=== PATIENT | male | born 1930 | race Caucasian/White ===

== ENCOUNTER 2017-05-20 15:50 | Inpatient (IN) | payer OTHER ==
--- NOTE | 2017-05-20 16:05 | CPEKG ---
Heart Rate: 79 RR Interval: 759 P-R Interval: 208 QRSD Interval: 84 QT Interval: 376 QTC Interval: 432 P Whitehall: 74 QRS Whitehall: 31 T Wave Whitehall: 56 EKG Severity - NORMAL ECG - EKG Impression: SINUS RHYTHM Electronically Signed By: Reggie Whelan 20-May-2017 18:01:36
[2017-05-20 16:24] LABS: % IMMATURE GRANULYOCYTES 0.5 % (0.0-1.1); ABSOLUTE IMMATURE GRANULOCYTES 0.03 10^3/uL (0.00-0.10); ADD DIFF? NO; ADD MORPH? NO; ADD SCAN? NO; ATYPICAL LYMPHOCYTE FLAG 10 (0-99); FRAGMENT RBC FLAG 0 (0-99); HEMATOCRIT 36.6 % (40.0-51.0); HEMOGLOBIN 11.2 g/dL (13.7-17.5); LEFT SHIFT FLG 10 (0-99); LIPEMIA HEMOLYSIS FLAG 80 (0-99); MEAN CELL HEMOGLOBIN 22.4 pg (27.9-34.1); MEAN CELL HEMOGLOBIN CONCENTR. 30.6 g/dL (32.4-36.7); MEAN CELL VOLUME 73.2 fL (81.5-99.8); MEAN PLATELET VOLUME 10.2 fL (8.7-11.7); PLATELET CLUMPS FLAG 20 (0-99); PLATELET COUNT 149 10^3/uL (150-400); RED CELL DISTRIBUTION WIDTH 17.2 % (11.5-15.2)
[2017-05-20 16:36] LABS: ALANINE AMINOTRANSFERASE 30 IU/L (21-72); ALBUMIN 4.2 g/dL (3.5-5.0); ALKALINE PHOSPHATASE 133 IU/L (38-126); ANION GAP 12 mEq/L (8-16); ASPARTATE AMINOTRANSFERASE 39 IU/L (17-59); BILIRUBIN,TOTAL 1.7 mg/dL (0.1-1.4); BILIRUBIN-CONJUGATED 0.4 mg/dL (0.0-0.5); BILIRUBIN-UNCONJUGATED 1.3 mg/dL (0.0-1.1); CARBON DIOXIDE 22 mEq/l (22-31); CHLORIDE 107 mEq/L (97-110); CREATININE 1.2 mg/dL (0.7-1.3); GLOMERULAR FILTRATION RATE 58; GLUCOSE 124 mg/dL (70-100); POTASSIUM 5.2 mEq/L (3.5-5.2); SODIUM 141 mEq/L (134-144); TOTAL PROTEIN 8.2 g/dL (6.3-8.2)
[2017-05-20] MEDS ORDERED: IOPAMIDOL (ISOVUE-300) 100 ML BTL ONE (16:43)
[2017-05-20 16:48] LABS: TROPONIN I < 0.012 ng/mL (0-0.034)
[2017-05-20] MEDS ORDERED: ERTAPENEM 1 GM in NS 100 ML IV ONE (17:36)
[2017-05-20] MEDS ORDERED: NS 1,000 ML IV ONE (17:36)
--- NOTE | 2017-05-20 17:36 | EDPHY ---
H & P Stated Complaint: epigastric pain since this am Time Seen by Provider: 05/20/17 16:06 HPI/ROS: CHIEF COMPLAINT: Epigastric pain HISTORY OF PRESENT ILLNESS: The patient presents to the ED with a 1 day history of severe the epigastric pain. The patient has had milder symptoms over the past 4 days alleviated with Tums. The patient reports nausea but no vomiting. He denies diarrhea. He denies fever. The patient has remote history of bowel obstruction requiring laparoscopy. The patient reports his pain is currently a 6/10. The patient denies recent fever, cough or congestion. Patient has no history of exertional chest pain or shortness of breath. The patient does have a remote history of coronary artery disease. The patient is visiting from [place]. He has been in [place] since the 21 of March. REVIEW OF SYSTEMS: A comprehensive 10 point review of systems is otherwise negative aside from elements mentioned in the history of present illness. Source: Patient Exam Limitations: No limitations - Personal History Current Tetanus/Diphtheria Vaccine: Unsure Current Tetanus Diphtheria and Acellular Pertussis (TDAP): Unsure - Medical/Surgical History Hx Asthma: No Hx Chronic Respiratory Disease: Yes Hx Diabetes: No Hx Cardiac Disease: Yes Hx Renal Disease: No Hx Cirrhosis: No Hx Alcoholism: No Hx HIV/AIDS: No Hx Splenectomy or Spleen Trauma: No Other PMH: stent x1 12/2007. copd - Social History Smoking Status: Former smoker - Physical Exam Exam: General Appearance: Alert, mild discomfort secondary to pain Eyes: Pupils equal and round no pallor or injection ENT, Mouth: Mucous membranes moist Respiratory: There are no retractions, lungs are clear to auscultation Cardiovascular: Regular rate and rhythm Gastrointestinal: Moderate epigastric tenderness, no peritoneal signs, normal bowel sounds Neurological: A&O, normal motor function, normal sensory exam, normal cranial nerves Skin: Warm and dry, no rashes Musculoskeletal: Neck is supple nontender Extremities: symmetrical, full range of motion Constitutional: Initial Vital Signs Temperature (C) 36.7 C 05/20/17 15:55 Heart Rate 83 05/20/17 15:55 Respiratory Rate 16 05/20/17 15:55 Blood Pressure 132/74 H 05/20/17 15:55 O2 Sat (%) 94 05/20/17 15:55 O2 Delivery Mode Room Air Allergies/Adverse Reactions: No Known Allergies Allergy (Unverified 05/20/17 15:54) Home Medications: Medication Instructions Recorded Aspirin [Aspirin 81mg (*)] 81 mg PO DAILY 05/20/17 Betaxolol 0.25% [BETOPTIC S 0.25% 1 drops EACHEYE HS 05/20/17 (RX)] Doxycycline Hyclate [Vibramycin 100 mg PO DAILY 05/20/17 100 MG (*)] Loperamide HCl [Imodium 2 mg (*)] 4 mg PO DAILY 05/20/17 Melatonin [Melatonin 3 MG (*)] 3 - 6 mg PO HS PRN 05/20/17 Ranitidine HCl [Zantac] 150 mg PO DAILY 05/20/17 Simvastatin 10 mg PO HS 05/20/17 Tiotropium Inhaler [Spiriva 18 mcg IH DAILY 05/20/17 Handihaler] Medical Decision Making - Diagnostics EKG Interpretation: EKG: Complete interpretation has been separately recorded in the [facility] archive. Summary impression: Sinus rhythm, rate 79. No ischemic changes. Imaging Results: Imaging Impressions Abdomen CT 05/20/17 16:41 Impression: 1. Fluid in the right upper quadrant of the abdomen surrounding the gallbladder , as well as edema in the duodenal bulb and gastric antrum with surrounding free fluid and two gallstones in the right upper quadrant within the mesentery, likely representing perforation from choledocholithiasis either perforated duodenum or perforated common bile duct. Recommend surgeon. 2. Cirrhosis and a small amount of ascites in the right upper quadrant. 3. Atherosclerotic aorta without aneurysm. 4. No drainable abscess. Findings and recommendations discussed with emergency department physician, Reggie Whelan at 1724 hours on May 20, 2017. Final report concurs with initial preliminary interpretation. ED Course/Re-evaluation: The patient had an IV established. He received a L of normal saline. An EKG was performed which demonstrates no evidence of ischemia. Given the patient's abdominal tenderness he was taken for an emergent CT scan of the abdomen pelvis which demonstrates duodenal inflammation as well as extraluminal cholelithiasis. I re-evaluated the patient at 5:30 p.m.. He is receiving an additional 1 L of normal saline. He is receiving IV morphine for pain control. Consultation was made with Dr. Mary Hough who on-call for General surgery this evening. She evaluated the patient in the emergency department and will be taking him emergently to the operating room for exploration. The patient received IV Invanz. He was kept NPO throughout her stay in the emergency department. The patient will be taken emergently to the operating room for evaluation of his presumed abdominal perforation. Differential Diagnosis: Differential diagnosis considered includes acute coronary syndrome, pancreatitis , cholecystitis, duodenitis, perforation, obstruction Critical Care Time: Critical care time exclusive of procedures and exclusive of the PA's time was 35 minutes, performed by myself, Reggie Whelan MD. The patient presents to the ED with acute abdominal pain is noted to have evidence of a abdominal perforation. The patient received fluid resuscitation in the emergency department. Consultation was made with the on-call general surgeon who took the patient to the operating room for exploratory laparotomy. - Data Points Laboratory Results: Laboratory Results 05/20/17 16:15 05/20/17 16:15 05/20/17 05/20/17 16:15 16:15 WBC 6.56 10^3/uL 10^3/uL (3.80-9.50) RBC 5.00 10^6/uL 10^6/uL (4.40-6.38) Hgb 11.2 g/dL L g/dL (13.7-17.5) Hct 36.6 % L % (40.0-51.0) MCV 73.2 fL L fL (81.5-99.8) MCH 22.4 pg L pg (27.9-34.1) MCHC 30.6 g/dL L g/dL (32.4-36.7) RDW 17.2 % H % (11.5-15.2) Plt Count 149 10^3/uL L 10^3/uL (150-400) MPV 10.2 fL fL (8.7-11.7) Neut % (Auto) 77.2 % H % (39.3-74.2) Lymph % (Auto) 10.2 % L % (15.0-45.0) Pender % (Auto) 6.9 % % (4.5-13.0) Eos % (Auto) 4.4 % % (0.6-7.6) Baso % (Auto) 0.8 % % (0.3-1.7) Nucleat RBC Rel Count 0.0 % % (0.0-0.2) Absolute Neuts (auto) 5.07 10^3/uL 10^3/uL (1.70-6.50) Absolute Lymphs (auto) 0.67 10^3/uL L 10^3/uL (1.00-3.00) Absolute Monos (auto) 0.45 10^3/uL 10^3/uL (0.30-0.80) Absolute Eos (auto) 0.29 10^3/uL 10^3/uL (0.03-0.40) Absolute Basos (auto) 0.05 10^3/uL 10^3/uL (0.02-0.10) Absolute Nucleated RBC 0.00 10^3/uL 10^3/uL (0-0.01) Immature Gran % 0.5 % % (0.0-1.1) Immature Gran # 0.03 10^3/uL 10^3/uL (0.00-0.10) Sodium 141 mEq/L mEq/L (134-144) Potassium 5.2 mEq/L mEq/L (3.5-5.2) Chloride 107 mEq/L mEq/L (97-110) Carbon Dioxide 22 mEq/l mEq/l (22-31) Anion Gap 12 mEq/L mEq/L (8-16) BUN 31 mg/dL H mg/dL (7-23) Creatinine 1.2 mg/dL mg/dL (0.7-1.3) Estimated GFR 58 Glucose 124 mg/dL H mg/dL (70-100) Calcium 10.0 mg/dL mg/dL (8.5-10.4) Total Bilirubin 1.7 mg/dL H mg/dL (0.1-1.4) Conjugated Bilirubin 0.4 mg/dL mg/dL (0.0-0.5) Unconjugated Bilirubin 1.3 mg/dL H mg/dL (0.0-1.1) AST 39 IU/L IU/L (17-59) ALT 30 IU/L IU/L (21-72) Alkaline Phosphatase 133 IU/L H IU/L (38-126) Troponin I < 0.012 ng/mL ng/mL (0-0.034) Total Protein 8.2 g/dL g/dL (6.3-8.2) Albumin 4.2 g/dL g/dL (3.5-5.0) Lipase 61.0 IU/L IU/L (23-300) Medications Given: Discontinued Medications Sodium Chloride (Ns) 1,000 mls @ 0 mls/hr IV ONCE ONE; Wide Open PRN Reason: Protocol Stop: 05/20/17 17:37 Last Admin: 05/20/17 17:53 Dose: 1,000 mls Ertapenem 1 gm/ Sodium (Chloride) 100 mls @ 200 mls/hr IV EDNOW ONE PRN Reason: Protocol Stop: 05/20/17 18:05 Last Admin: 05/20/17 18:08 Dose: 100 mls Morphine Sulfate (Morphine) 4 mg IVP EDNOW ONE Stop: 05/20/17 17:38 Last Admin: 05/20/17 17:55 Dose: 4 mg Departure - Departure Disposition: [facility] Inpatient Acute Clinical Impression: Perforated abdominal viscus, Cholelithiasis Condition: Fair
[2017-05-20] MEDS ORDERED: BUPIVACAINE 0.5% 30 ML SDV ONE (18:24)
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
[2017-05-20] MEDS ORDERED: LR 1,000 ML IV ONE (18:49)
[2017-05-20] MEDS ORDERED: PROPOFOL 200 MG/20 ML VIAL ONE ×4 (19:09→20:37)
[2017-05-20] MEDS ORDERED: fentaNYL 100 MCG/2 ML INJ ONE ×3 (19:09→21:24)
[2017-05-20] MEDS ORDERED: MIDAZOLAM 2 MG/2 ML VIAL ONE (19:16)
[2017-05-20] MEDS ORDERED: RANITIDINE 50 MG/2 ML VIAL ONE (19:25)
[2017-05-20] MEDS ORDERED: PHENYLEPHRINE HCL 100 MCG/ML SYR ONE (19:32)
[2017-05-20] MEDS ORDERED: REMIFENTANIL HCL 1 MG VIAL ONE (19:41)
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
[2017-05-20] MEDS ORDERED: ROCURONIUM 50 MG/5 ML VIAL ONE (20:26)
[2017-05-20] MEDS ORDERED: ONDANSETRON 4 MG/2 ML VIAL ONE (21:17)
[2017-05-20] MEDS ORDERED: GLYCOPYRROLATE 0.2 MG/1 ML VIAL ONE (21:18)
[2017-05-20] MEDS ORDERED: NEOSTIGMINE METHYLSULFATE 5 MG/5 ML SYR ONE (21:18)
[2017-05-20] MEDS ORDERED: fentaNYL 100 MCG/2 ML INJ IVP PRN (21:25)
[2017-05-20] MEDS ORDERED: NALOXONE HCL 0.4 MG/ML INJ IVP PRN (21:25)
[2017-05-20] MEDS ORDERED: HYDROmorphONE/DILAUDID 1 MG/ML SYR IVP PRN (21:25)
--- NOTE | 2017-05-20 22:00 | POSTANESTH ---
Post Anesthetic Evaluation Cardiovascular Status: Similar to Pre-Op Cond Respiratory Status: Similar to Pre-op Cond. Level of Consciousness/Mental Status: Mildly Sleepy, Arousable Pain Control: Adequate, Prn Tx Ordered Nausea/Vomiting Control: Adequate, Prn Tx Ordered Complications Possibly Related to Anesthesia: None Noted
[2017-05-20] MEDS ORDERED: METOPROLOL TARTRATE 5 MG/5 ML INJ ONE (22:06)
[2017-05-20] MEDS: METOPROLOL TARTRATE 5 MG/5 ML INJ IVP SCH ×2 (22:11→22:22)
--- NOTE | 2017-05-20 22:27 | POSTOPPROG ---
Post Op Note Date of Operation: 05/20/17 Surgeon: Mary Hough Rod Bending Machine Operator: ron Anesthesiologist: edgardo Anesthesia: GET(General Endotracheal) Pre-op Diagnosis: extraluminal gallstones Post-op Diagnosis: gallstones impacted in colonic diverticula Indication: 86 year old with epigastric pain, CT with cholecystitis and extraluminal ga Procedure: lap mary, ex lap with RANJANA Findings: gallstone impacted in colonic diverticula Inf/Abcess present in the surg proc area at time of surgery?: Yes Depth: Superfical (Skin SQ) EBL: 100-500
[2017-05-20] MEDS ORDERED: ONDANSETRON 4 MG/2 ML VIAL IVP PRN (22:28)
[2017-05-20] MEDS ORDERED: D5W 1/2 NS W/ 20 KCl/L 1,000 ML IV SCH (22:30)
[2017-05-21] MEDS: METOPROLOL TARTRATE 5 MG/5 ML INJ IVP SCH (00:41)
[2017-05-21 04:39] LABS: ADD MORPH? NO; ADD SCAN? YES; ATYPICAL LYMPHOCYTE FLAG 0 (0-99); FRAGMENT RBC FLAG 0 (0-99); HEMATOCRIT 30.9 % (40.0-51.0); HEMOGLOBIN 9.3 g/dL (13.7-17.5); LIPEMIA HEMOLYSIS FLAG 80 (0-99); MEAN CELL HEMOGLOBIN 22.5 pg (27.9-34.1); MEAN CELL HEMOGLOBIN CONCENTR. 30.1 g/dL (32.4-36.7); MEAN CELL VOLUME 74.6 fL (81.5-99.8); MEAN PLATELET VOLUME 9.5 fL (8.7-11.7); PLATELET CLUMPS FLAG 0 (0-99); PLATELET COUNT 107 10^3/uL (150-400); RED BLOOD CELL COUNT 4.14 10^6/uL (4.40-6.38); RED CELL DISTRIBUTION WIDTH 16.8 % (11.5-15.2)
[2017-05-21 04:59] LABS: ALANINE AMINOTRANSFERASE 31 IU/L (21-72); ALBUMIN 3.1 g/dL (3.5-5.0); ALKALINE PHOSPHATASE 93 IU/L (38-126); ANION GAP 11 mEq/L (8-16); ASPARTATE AMINOTRANSFERASE 48 IU/L (17-59); BILIRUBIN,TOTAL 1.9 mg/dL (0.1-1.4); CALCIUM 8.5 mg/dL (8.5-10.4); CARBON DIOXIDE 21 mEq/l (22-31); CHLORIDE 108 mEq/L (97-110); CREATININE 1.2 mg/dL (0.7-1.3); GLOMERULAR FILTRATION RATE 58; GLUCOSE 160 mg/dL (70-100); POTASSIUM 5.3 mEq/L (3.5-5.2); SODIUM 140 mEq/L (134-144); TOTAL PROTEIN 6.2 g/dL (6.3-8.2)
[2017-05-21 05:03] LABS: LEFT SHIFT FLG 220 (0-99)
[2017-05-21 05:20] LABS: ADD DIFF? YES; SCAN POSITIVE
[2017-05-21 05:24] LABS: HYPOCHROMIA 3+; MICROCYTES 1+; PLATELET ESTIMATE DECREASED (ADEQ); POLYCHROMASIA 1+
--- NOTE | 2017-05-21 07:27 | GOP ---
[f rep st] OPERATIVE REPORT DATE OF OPERATION: 05/20/2017 SURGEON: Mary Hough MD BRANCH MANAGER: Golden Malave MD, who was requested by my presence for his technical expertise and timely completion of the case. ANESTHESIA: General. ANESTHESIOLOGIST: Dr. Crouch. PREOPERATIVE DIAGNOSIS: Extraluminal gallstones. POSTOPERATIVE DIAGNOSIS: Acute calculous cholecystitis with stone impacted in transverse colon diverticula PROCEDURE PERFORMED: Laparoscopic cholecystectomy and exploratory laparotomy, with lysis of adhesions. FINDINGS: There was a stone impacted in a diverticula of the colon. He had a very cirrhotic liver. SPECIMENS: Gallbladder. ESTIMATED BLOOD LOSS: 200 cc. INDICATIONS: The patient is an 86-year-old man, who presented to the ER with a 4-day history of epigastric pain, which worsened today. He ultimately had a CT scan performed, which showed extraluminal gallstones and an inflamed gallbladder. His LFTs were slightly elevated. DESCRIPTION OF PROCEDURE: The patient was brought into the operating room, placed supine on the table, and general anesthesia was administered. His abdomen was prepped and draped in the usual sterile fashion. I infiltrated all sites with 0.5% Marcaine prior to making incisions. I made an incision above his umbilicus. I dissected down through the subcutaneous tissues. I inserted the Veress needle. It passed the hanging drop test. His abdomen insufflated easily to a pressure of 15 mmHg. I placed a 5 mm trocar with a camera at this site. There were no injuries from Veress needle placement. I placed a 5 mm trocar with the camera at this site. His liver was very cirrhotic. His gallbladder was elongated, and there was fluid and edema by the gallbladder. There was a very scant amount of serous versus bilious fluid in the right upper quadrant, and there was serosanguineous fluid in his pelvis. He did have some adhesions along the left lateral sidewall. Under direct vision, I placed a 10 mm subxiphoid trocar and two 5 mm trocars along the right costal margin. His gallbladder was very friable. I lifted it cephalad and laterally to expose the triangle of Calot. I was able to skeletonize the cystic artery and cystic duct , so that they were the only 2 structures directly entering the gallbladder. I singly clipped the cystic duct, which was a bit dilated toward the gallbladder, and doubly clipped it distally, and the clips came around the cystic duct nicely. I clipped the cystic artery. I transected each of these with scissors. I removed the gallbladder from the gallbladder fossa with electrocautery. There was spillage of bile. I placed the gallbladder in an EndoCatch bag and retrieved it via the 10 mm trocar. Hemostasis was achieved on the liver bed with electrocautery. I then attempted to see if there was a fistula from either the common bile duct into the duodenum, or another area that could explain extraluminal gallstones. I was unsuccessful in doing this laparoscopically. I then made an upper midline incision and dissected down through the subcutaneous tissues. I performed lysis of adhesions. I ran his entire small bowel which appeared normal. As I was doing this, again I was not finding obvious fistulous communication. I then asked a colleague, Dr. Golden Malave, to assist with the open portion of the case, for his technical expertise and timely completion of the case. I opened the hepatoduodenal ligament. I opened the area and explored the common bile duct, and it was soft and there was not a lot inflammation by this. I kocherized the duodenum, and again did not find a communication. As I was palpating his transverse colon, I did find what I felt to be 2 gallstones, 1 impacted in a diverticula. I was able to push these so that they were fully in the lumen of the colon. I then dunked the diverticula and sewed it with 3-0 Vicryl. Suction irrigation was performed. Surgicel was placed on the liver bed. The fascia was closed with #1 PDS. Skin closed with darius. The laparoscopic incisions were closed with 4-0 Monocryl. Sterile dressings were applied. He was awakened in the operating room, extubated, transferred to PACU in stable condition. /[id number]/MODL MTDD
--- NOTE | 2017-05-21 10:15 | SOAPPROG ---
SOAP Progress Note Assessment/Plan: Assessment: 86yo M POD#1 s/p lap mary and ex lap for gallstone impacted in diverticula Pain controlled NG out today Continue NPO until passing flatus Change midline dressing as needed Encouraged IS, ambulation Dispo: continue inpt until return of bowel function S: feeling well this morning. pain controlled. Not passing much gas. NG extremely uncomfortable. hasn't tried walking yet. O: laying in bed, comfortable, NAD No increased WOB Abd softly distended, +BS. Appropriately tender around midline incision. Incision CDI Objective: Vital Signs Temp Pulse Resp BP Pulse Ox 36.6 C 83 17 132/61 H 93 05/21/17 08:40 05/21/17 08:40 05/21/17 08:40 05/21/17 08:40 05/21/17 08:40 Laboratory Results 05/21/17 04:30 05/21/17 04:30 05/20/17 05/21/17 05/22/17 05:59 05:59 05:59 Intake Total 2484 Output Total 950 Balance 1534 ICD10 Worksheet Patient Problems: Problems Problem Status Onset Cholelithiasis Acute Perforated abdominal viscus Acute
[2017-05-21] MEDS: ENOXAPARIN 40 MG/0.4 ML SYR SC SCH (10:56)
[2017-05-21] MEDS: ACETAMINOPHEN 325 MG TAB PO PRN (11:05)
[2017-05-21] MEDS: HYDROCODONE/APAP 5/325 TAB PO PRN (17:43)
[2017-05-22] MEDS: ACETAMINOPHEN 325 MG TAB PO PRN (02:52)
[2017-05-22] MEDS ORDERED: NS 1,000 ML IV SCH (07:30)
[2017-05-22] MEDS: TIOTROPIUM INHALER 18 MCG/DOSE 5 DOSE/MDI IH SCH (08:24)
[2017-05-22] MEDS: ENOXAPARIN 40 MG/0.4 ML SYR SC SCH (08:24)
[2017-05-22] MEDS ORDERED: MELATONIN 3 MG TAB PO PRN (08:59)
--- NOTE | 2017-05-22 08:59 | SOAPPROG ---
SOAP Progress Note Assessment/Plan: Assessment: 86yo M POD#2 s/p lap mary and ex lap for gallstone impacted in diverticula Pain controlled Clear liquid diet Resume home PO med Voiding well Change midline dressing as needed Encouraged IS, ambulation Dispo: continue inpt until return of bowel function S: Passing flatus. feeling distended. pain well controlled O: sitting up in chir, comfortable, NAD CTAB, no increased WOB RRR Abd softly distended, +BS. Appropriately tender around midline incision. Dressing intact 05/22/17 09:00 Objective: Vital Signs Temp Pulse Resp BP Pulse Ox 36.9 C 78 18 118/57 L 95 05/22/17 05:59 05/22/17 05:59 05/22/17 05:59 05/22/17 05:59 05/22/17 05:59 Laboratory Results 05/21/17 04:30 05/21/17 04:30 05/21/17 05/22/17 05/23/17 05:59 05:59 05:59 Intake Total 2484 1020 400 Output Total 950 550 Balance 1534 470 400 ICD10 Worksheet Patient Problems: Problems Problem Status Onset Cholelithiasis Acute Perforated abdominal viscus Acute
[2017-05-22] MEDS ORDERED: CETIRIZINE 10 MG TAB PO SCH (09:00)
[2017-05-22] MEDS ORDERED: TIOTROPIUM INHALER 18 MCG/DOSE 5 DOSE/MDI IH SCH (09:00)
[2017-05-22] MEDS ORDERED: NON-FORMULARY NEW DRUG (Ranitidine Hcl [Zantac] 150 MG) PO SCH (09:00)
[2017-05-22] MEDS: HYDROCODONE/APAP 5/325 TAB PO PRN ×2 (12:36→21:34)
[2017-05-22] MEDS: FAMOTIDINE 20 MG TAB PO SCH (13:08)
--- NOTE | 2017-05-22 15:09 | SOAPPROG ---
SOAP Progress Note Assessment/Plan: Assessment: POD # 2 s/p lap mary and ex lap with adhesiolysis Minimal flatus feeling improved Clears - when passing more flatus, can advance S: Sitting in chair O: Slightly distended Incision cdi Addendum: Emesis x 1 - make NPO - Added protonix Plan: 05/22/17 15:07 Objective: Vital Signs Temp Pulse Resp BP Pulse Ox 36.7 C 72 16 118/57 L 96 05/22/17 08:20 05/22/17 08:20 05/22/17 08:20 05/22/17 08:20 05/22/17 08:20 Laboratory Results 05/21/17 04:30 05/21/17 04:30 05/21/17 05/22/17 05/23/17 05:59 05:59 05:59 Intake Total 2484 1020 400 Output Total 950 550 Balance 1534 470 400 ICD10 Worksheet Patient Problems: Problems Problem Status Onset Cholelithiasis Acute Perforated abdominal viscus Acute
[2017-05-22] MEDS: PANTOPRAZOLE SODIUM 40 MG in NS 100 ML IV SCH (15:24)
[2017-05-22] MEDS ORDERED: NON-FORMULARY NEW DRUG (Simvastatin [Simvastatin] 10 MG) PO SCH (21:00)
[2017-05-22] MEDS: BETAXOLOL 0.25% EACHEYE SCH (21:31)
[2017-05-22] MEDS: PRAVASTATIN SODIUM 20 MG TAB PO SCH (21:33)
[2017-05-23 04:53] LABS: % IMMATURE GRANULYOCYTES 0.6 % (0.0-1.1); ABSOLUTE IMMATURE GRANULOCYTES 0.03 10^3/uL (0.00-0.10); ADD DIFF? NO; ADD MORPH? NO; ADD SCAN? NO; ATYPICAL LYMPHOCYTE FLAG 0 (0-99); FRAGMENT RBC FLAG 0 (0-99); HEMATOCRIT 24.7 % (40.0-51.0); HEMOGLOBIN 7.4 g/dL (13.7-17.5); LEFT SHIFT FLG 30 (0-99); LIPEMIA HEMOLYSIS FLAG 80 (0-99); MEAN CELL HEMOGLOBIN 22.3 pg (27.9-34.1); MEAN CELL VOLUME 74.4 fL (81.5-99.8); MEAN PLATELET VOLUME 9.7 fL (8.7-11.7); PLATELET CLUMPS FLAG 10 (0-99); PLATELET COUNT 89 10^3/uL (150-400); RED BLOOD CELL COUNT 3.32 10^6/uL (4.40-6.38); RED CELL DISTRIBUTION WIDTH 16.8 % (11.5-15.2)
[2017-05-23 06:09] LABS: ALANINE AMINOTRANSFERASE 29 IU/L (21-72); ALBUMIN 2.5 g/dL (3.5-5.0); ALKALINE PHOSPHATASE 93 IU/L (38-126); ANION GAP 8 mEq/L (8-16); ASPARTATE AMINOTRANSFERASE 29 IU/L (17-59); BILIRUBIN,TOTAL 1.6 mg/dL (0.1-1.4); CALCIUM 7.8 mg/dL (8.5-10.4); CARBON DIOXIDE 21 mEq/l (22-31); CHLORIDE 109 mEq/L (97-110); CREATININE 1.2 mg/dL (0.7-1.3); GLOMERULAR FILTRATION RATE 58; GLUCOSE 81 mg/dL (70-100); POTASSIUM 4.6 mEq/L (3.5-5.2); SODIUM 138 mEq/L (134-144); TOTAL PROTEIN 5.1 g/dL (6.3-8.2)
[2017-05-23] MEDS: TIOTROPIUM INHALER 18 MCG/DOSE 5 DOSE/MDI IH SCH (08:36)
[2017-05-23] MEDS: ENOXAPARIN 40 MG/0.4 ML SYR SC SCH (08:47)
[2017-05-23] MEDS: PANTOPRAZOLE SODIUM 40 MG in NS 100 ML IV SCH (08:47)
[2017-05-23] MEDS: FAMOTIDINE 20 MG TAB PO SCH (08:47)
[2017-05-23] MEDS ORDERED: FAMOTIDINE 20 MG TAB PO SCH (09:00)
--- NOTE | 2017-05-23 11:49 | SOAPPROG ---
SOAP Progress Note Assessment/Plan: Assessment: 86yo M POD#3 s/p lap mary and ex lap for gallstone impacted in diverticula Pain controlled NPO ice chips for comfort Rpeat CBC Voiding well Change midline dressing as needed Encouraged IS, ambulation Dispo: continue inpt until return of bowel function S: No more emesis. no nausea. reflux resolved. Pain controlled. Min flatus O: sitting up in chir, comfortable, NAD CTAB, no increased WOB RRR Abd softly distended, hypoactive BS. Appropriately tender around midline incision. incision cdi 05/22/17 09:00 05/23/17 11:48 Objective: Vital Signs Temp Pulse Resp BP Pulse Ox 36.6 C 84 16 117/61 95 05/23/17 07:38 05/23/17 07:38 05/23/17 07:38 05/23/17 07:38 05/23/17 07:38 Laboratory Results 05/23/17 04:18 05/23/17 04:18 05/22/17 05/23/17 05/24/17 05:59 05:59 05:59 Intake Total 1020 850 Output Total 550 500 100 Balance 470 350 -100 ICD10 Worksheet Patient Problems: Problems Problem Status Onset Cholelithiasis Acute Perforated abdominal viscus Acute
[2017-05-23 12:10] LABS: BILIRUBIN,TOTAL 1.6 mg/dL (0.1-1.4); BILIRUBIN-CONJUGATED 0.6 mg/dL (0.0-0.5)
[2017-05-23 13:21] LABS: % IMMATURE GRANULYOCYTES 0.8 % (0.0-1.1); ABSOLUTE IMMATURE GRANULOCYTES 0.04 10^3/uL (0.00-0.10); ADD DIFF? NO; ADD MORPH? NO; ADD SCAN? NO; ATYPICAL LYMPHOCYTE FLAG 0 (0-99); FRAGMENT RBC FLAG 0 (0-99); HEMATOCRIT 24.3 % (40.0-51.0); HEMOGLOBIN 7.2 g/dL (13.7-17.5); LEFT SHIFT FLG 40 (0-99); LIPEMIA HEMOLYSIS FLAG 70 (0-99); MEAN CELL HEMOGLOBIN 22.2 pg (27.9-34.1); MEAN CELL HEMOGLOBIN CONCENTR. 29.6 g/dL (32.4-36.7); MEAN PLATELET VOLUME 9.7 fL (8.7-11.7); PLATELET CLUMPS FLAG 0 (0-99); PLATELET COUNT 94 10^3/uL (150-400); RED BLOOD CELL COUNT 3.24 10^6/uL (4.40-6.38); RED CELL DISTRIBUTION WIDTH 16.9 % (11.5-15.2)
[2017-05-23] MEDS ORDERED: FUROSEMIDE 20 MG/2 ML VIAL IVP ONE ×2 (14:33→21:30)
[2017-05-23] MEDS: PRAVASTATIN SODIUM 20 MG TAB PO SCH (21:31)
[2017-05-23] MEDS: BETAXOLOL 0.25% EACHEYE SCH (22:58)
[2017-05-23] MEDS: HYDROCODONE/APAP 5/325 TAB PO PRN (23:44)
--- NOTE | 2017-05-24 07:37 | SOAPPROG ---
SOAP Progress Note Assessment/Plan: Assessment: POD # 4 s/p lap mary and ex lap with adhesiolysis Chirrotic Liver Acute anemai blood loss - s/p 2 units PRBC Flatus but no BM Bilirubin more elevated today. Dr. Starr to see tomorrow. feeling improved Regular diet S: Sitting in chair, eager to go home O: Slightly distended, BS present Incision cdi CTAB RRR Plan: 05/22/17 15:07 05/24/17 07:37 05/24/17 20:12 Objective: Vital Signs Temp Pulse Resp BP Pulse Ox 36.7 C 77 16 124/57 H 95 05/24/17 03:30 05/24/17 03:30 05/24/17 03:30 05/24/17 03:30 05/24/17 03:30 Laboratory Results 05/23/17 13:11 05/23/17 04:18 05/23/17 05/24/17 05/25/17 05:59 05:59 05:59 Intake Total 850 520 Output Total 500 1625 Balance 350 -1105 ICD10 Worksheet Patient Problems: Problems Problem Status Onset Cholelithiasis Acute Perforated abdominal viscus Acute
[2017-05-24 07:49] LABS: % IMMATURE GRANULYOCYTES 0.4 % (0.0-1.1); ABSOLUTE IMMATURE GRANULOCYTES 0.02 10^3/uL (0.00-0.10); ADD DIFF? NO; ADD MORPH? NO; ADD SCAN? NO; ATYPICAL LYMPHOCYTE FLAG 0 (0-99); FRAGMENT RBC FLAG 0 (0-99); HEMATOCRIT 32.9 % (40.0-51.0); HEMOGLOBIN 10.2 g/dL (13.7-17.5); LEFT SHIFT FLG 20 (0-99); LIPEMIA HEMOLYSIS FLAG 80 (0-99); MEAN CELL HEMOGLOBIN 23.7 pg (27.9-34.1); MEAN CELL VOLUME 76.5 fL (81.5-99.8); MEAN PLATELET VOLUME 9.2 fL (8.7-11.7); PLATELET CLUMPS FLAG 10 (0-99); PLATELET COUNT 122 10^3/uL (150-400); RED CELL DISTRIBUTION WIDTH 17.2 % (11.5-15.2)
[2017-05-24 08:15] LABS: ALANINE AMINOTRANSFERASE 26 IU/L (21-72); ALBUMIN 2.9 g/dL (3.5-5.0); ALKALINE PHOSPHATASE 121 IU/L (38-126); ANION GAP 10 mEq/L (8-16); ASPARTATE AMINOTRANSFERASE 27 IU/L (17-59); BILIRUBIN,TOTAL 4.4 mg/dL (0.1-1.4); CALCIUM 8.5 mg/dL (8.5-10.4); CARBON DIOXIDE 22 mEq/l (22-31); CHLORIDE 108 mEq/L (97-110); CREATININE 1.2 mg/dL (0.7-1.3); GLOMERULAR FILTRATION RATE 58; GLUCOSE 78 mg/dL (70-100); POTASSIUM 4.7 mEq/L (3.5-5.2); SODIUM 140 mEq/L (134-144)
[2017-05-24] MEDS: PANTOPRAZOLE SODIUM 40 MG in NS 100 ML IV SCH (08:20)
[2017-05-24] MEDS: ENOXAPARIN 40 MG/0.4 ML SYR SC SCH (08:20)
[2017-05-24] MEDS: FAMOTIDINE 20 MG TAB PO SCH (08:20)
[2017-05-24 08:36] LABS: INR 1.28 (0.83-1.16)
[2017-05-24 08:44] LABS: BILIRUBIN-CONJUGATED 1.1 mg/dL (0.0-0.5); BILIRUBIN-UNCONJUGATED 3.3 mg/dL (0.0-1.1)
[2017-05-24] MEDS: TIOTROPIUM INHALER 18 MCG/DOSE 5 DOSE/MDI IH SCH (09:44)
[2017-05-24] MEDS ORDERED: MAGNESIUM HYDROXIDE 30 ML UDCUP PO PRN (18:44)
[2017-05-24] MEDS ORDERED: LACTULOSE 20 GM/30 ML UDCUP PO PRN (18:44)
[2017-05-24] MEDS ORDERED: BISACODYL 10 MG SUPP PR PRN (18:44)
[2017-05-24] MEDS ORDERED: POLYETHYLENE GLYCOL 3350 17 GM PKT PO PRN (18:44)
[2017-05-24] MEDS: BETAXOLOL 0.25% EACHEYE SCH (21:08)
[2017-05-24] MEDS: SENNOSIDES/DOCUSATE SODIUM TAB PO SCH (21:08)
[2017-05-24] MEDS: PRAVASTATIN SODIUM 20 MG TAB PO SCH (21:08)
[2017-05-25] MEDS: HYDROCODONE/APAP 5/325 TAB PO PRN (00:59)
[2017-05-25 05:07] LABS: % IMMATURE GRANULYOCYTES 0.2 % (0.0-1.1); ABSOLUTE IMMATURE GRANULOCYTES 0.01 10^3/uL (0.00-0.10); ADD DIFF? NO; ADD MORPH? NO; ADD SCAN? NO; ATYPICAL LYMPHOCYTE FLAG 0 (0-99); FRAGMENT RBC FLAG 0 (0-99); HEMATOCRIT 30.4 % (40.0-51.0); HEMOGLOBIN 9.4 g/dL (13.7-17.5); LEFT SHIFT FLG 40 (0-99); LIPEMIA HEMOLYSIS FLAG 80 (0-99); MEAN CELL HEMOGLOBIN 23.5 pg (27.9-34.1); MEAN CELL HEMOGLOBIN CONCENTR. 30.9 g/dL (32.4-36.7); MEAN PLATELET VOLUME 9.6 fL (8.7-11.7); PLATELET CLUMPS FLAG 0 (0-99); PLATELET COUNT 107 10^3/uL (150-400); RED CELL DISTRIBUTION WIDTH 17.5 % (11.5-15.2)
[2017-05-25 05:20] LABS: ALANINE AMINOTRANSFERASE 23 IU/L (21-72); ALBUMIN 2.6 g/dL (3.5-5.0); ALKALINE PHOSPHATASE 123 IU/L (38-126); ANION GAP 9 mEq/L (8-16); ASPARTATE AMINOTRANSFERASE 26 IU/L (17-59); BILIRUBIN,TOTAL 1.8 mg/dL (0.1-1.4); BILIRUBIN-CONJUGATED 0.6 mg/dL (0.0-0.5); BILIRUBIN-UNCONJUGATED 1.2 mg/dL (0.0-1.1); CALCIUM 8.1 mg/dL (8.5-10.4); CARBON DIOXIDE 21 mEq/l (22-31); CHLORIDE 110 mEq/L (97-110); GLOMERULAR FILTRATION RATE > 60; GLUCOSE 92 mg/dL (70-100); POTASSIUM 4.4 mEq/L (3.5-5.2); SODIUM 140 mEq/L (134-144); TOTAL PROTEIN 5.3 g/dL (6.3-8.2)
[2017-05-25] MEDS: TIOTROPIUM INHALER 18 MCG/DOSE 5 DOSE/MDI IH SCH (08:22)
[2017-05-25] MEDS: PANTOPRAZOLE SODIUM 40 MG in NS 100 ML IV SCH (09:35)
[2017-05-25] MEDS: ENOXAPARIN 40 MG/0.4 ML SYR SC SCH (09:35)
[2017-05-25] MEDS: FAMOTIDINE 20 MG TAB PO SCH (09:35)
[2017-05-25] MEDS: SENNOSIDES/DOCUSATE SODIUM TAB PO SCH (09:41)
--- NOTE | 2017-05-25 13:57 | SOAPPROG ---
SOAP Progress Note Assessment/Plan: Assessment:Plan: se full dictated consult 86 year old male with cirrhosis on CT and abnl antrum on CT s/p lap mary, bili, lfts decreasing EGD to eval abnml CT scan today 05/25/17 13:56 Objective: Vital Signs Temp Pulse Resp BP Pulse Ox 36.7 C 71 16 127/59 H 93 05/25/17 13:38 05/25/17 13:38 05/25/17 13:38 05/25/17 13:38 05/25/17 13:38 Laboratory Results 05/25/17 04:37 05/25/17 04:37 05/24/17 05/25/17 05/26/17 05:59 05:59 05:59 Intake Total 520 300 Output Total 1625 161 Balance -1105 139 PT 16.0 SEC (12.0-15.0) H 05/24/17 07:41 INR 1.28 (0.83-1.16) H 05/24/17 07:41 ICD10 Worksheet Patient Problems: Problems Problem Status Onset Cholelithiasis Acute Perforated abdominal viscus Acute
--- NOTE | 2017-05-25 14:20 | PDANEPAE ---
ANE Past Medical History - Cardiovascular History Hx Hypertension: No Hx Arrhythmias: No Hx Chest Pain: No Hx Coronary Artery / Peripheral Vascular Disease: Yes Hx CHF / Valvular Disease: No Cardiovascular History Comment: BELCHER with W/U requiring s/p stent in ,no ND. Pt. denies HTN, usual SBP 105-160 - Pulmonary History Hx COPD: Yes Hx Asthma/Reactive Airway Disease: No Hx Recent Upper Respiratory Infection: No Hx Oxygen in Use at Home: No Hx Sleep Apnea: No Sleep Apnea Screening Result - Last Documented: Positive Pulmonary History Comment: 1-2 ppd x 35 years, quit in 1983. On COPD rx since 1997 - Endocrine History Hx Diabetes: No Hypothyroid: No Hyperthyroid: No Obesity: no - Liver History Hx Hepatic Disorders: No Hepatic History Comment: asymptomic until this admission - Neurological & Psychiatric Hx Hx Neurological and Psychiatric Disorders: Yes Neurological / Psychiatric History Comment: herniated disc with B hip pain - Cancer History Hx Cancer: Yes Cancer History Comment: Basal cell ca. - Congenital Disorder History Hx Congenital Disorders: No - GI History GERD: moderate (on daily Zantac) Hx Gastrointestinal Disorders: Yes Gastrointestinal History Comment: hx of diverticulitis - Chronic Pain History Chronic Pain: No - Surgical History Prior Surgeries: s/p groin mass excision, L inguinal hernia repair, S/p partial colectomy, cataract extraction ANE Review of Systems - Exercise capacity METS (RN): 4 METS ANE Patient History - Allergies Allergies/Adverse Reactions: No Known Allergies Allergy (Unverified 05/20/17 15:54) - Home Medications Home Medications: Aspirin [Aspirin 81mg (*)] 81 mg PO DAILY 05/20/17 [Last Taken Unknown] Betaxolol 0.25% [BETOPTIC S 0.25% (RX)] 1 drops EACHEYE HS 05/20/17 [Last Taken Unknown] Doxycycline Hyclate [Vibramycin 100 MG (*)] 100 mg PO DAILY 05/20/17 [Last Taken Unknown] Loperamide HCl [Imodium 2 mg (*)] 4 mg PO DAILY 05/20/17 [Last Taken Unknown] Melatonin [Melatonin 3 MG (*)] 3 - 6 mg PO HS PRN 05/20/17 [Last Taken Unknown] Ranitidine HCl [Zantac] 150 mg PO DAILY 05/20/17 [Last Taken Unknown] Simvastatin 10 mg PO HS 05/20/17 [Last Taken Unknown] Tiotropium Inhaler [Spiriva Handihaler] 18 mcg IH DAILY 05/20/17 [Last Taken Unknown] - NPO status NPO Since - Liquids (Date): 05/25/17 NPO Since - Liquids (Time): 11:30 NPO Since - Solids (Date): 05/25/17 NPO Since - Solids (Time): 07:30 - Smoking Hx Smoking Status: Former smoker - Alcohol Use Alcohol Use: Other (1-3 drinks/day) ANE Labs/Vital Signs - Labs Result Diagrams: 05/25/17 04:37 05/25/17 04:37 - Vital Signs Blood Pressure: 127/59 Heart Rate: 71 Respiratory Rate: 16 O2 Sat (%): 93 Height: 182.88 cm Weight: 77.111 kg ANE Physical Exam - Airway Neck exam: FROM Mallampati Score: Class 1 Mouth exam: poor dentition - Pulmonary Pulmonary: no respiratory distress - Cardiovascular Cardiovascular: regular rate and rhythym - ASA Status ASA Status: II ANE Anesthesia Plan Anesthesia Plan: GA with mask
[2017-05-25] MEDS ORDERED: PROPOFOL/EMULSION 500 MG/50 ML BOTTLE IV ONE (14:28)
--- NOTE | 2017-05-25 14:51 | POSTOPPROG ---
Post Op Note Date of Operation: 05/25/17 Surgeon: Ander Starr Anesthesiologist: haley Anesthesia: Other (Specify) (IV general) Pre-op Diagnosis: abnml CT scan Post-op Diagnosis: DU clean based, duodenitis, gastritis, esophagitis Indication: abn CT scan Procedure: EGD and bx Findings: distal esophagitis, gastritis, large DU clean based, duodenitis no varices Inf/Abcess present in the surg proc area at time of surgery?: No EBL: Minimal (few ml from bx) Total fluids administered: 300 Complications: none immediate
[2017-05-25] MEDS ORDERED: PANTOPRAZOLE SODIUM 40 MG TAB PO SCH (15:15)
[2017-05-25 15:36] VITALS: BP 121/48; PULSE 72; RESP 16; TEMP 97.4; O2SAT 90
[2017-05-25 16:22] LABS: IRON < 10.1 mcg/dL (49-199)
[2017-05-25 16:28] LABS: % SATURATION 4 % (20-55); TOTAL IRON BINDING CAPACITY 286 ug/dL (260-490)
[2017-05-25 16:55] LABS: FERRITIN - BCH 89.3 ng/mL (17.9-464.0)
--- NOTE | 2017-05-25 17:04 | SOAPPROG ---
SOAP Progress Note Assessment/Plan: Assessment: 86yo M s/p lap amry and ex lap for gallstone impacted in diverticula. post-op acute blood loss anemia Endoscopy today with Matty for duodenal ulcer. Bx pending Pain controlled Tolerating regular diet Passing flatus H/H stable Ambulating independently Dispo: likely dc today or tomorrow. f/u early next week for staple removal. avoid heavy lifting x 6 weeks S: feeling well. eating well without n/v/d. pain controlled. wants to go home O: laying in bed, comfortable, NAD CTAB, no increased WOB RRR Abd softly distended, hypoactive BS. nontender. incision cdi R abdominal ecchymosis wrapping around to flank Objective: Vital Signs Temp Pulse Resp BP Pulse Ox 36.3 C 72 16 121/48 H 90 L 05/25/17 15:34 05/25/17 15:34 05/25/17 15:34 05/25/17 15:34 05/25/17 15:34 Laboratory Results 05/25/17 04:37 05/25/17 04:37 05/24/17 05/25/17 05/26/17 05:59 05:59 05:59 Intake Total 520 300 400 Output Total 1625 161 0 Balance -1105 139 400 PT 16.0 SEC (12.0-15.0) H 05/24/17 07:41 INR 1.28 (0.83-1.16) H 05/24/17 07:41 ICD10 Worksheet Patient Problems: Problems Problem Status Onset Cholelithiasis Acute Perforated abdominal viscus Acute
--- NOTE | 2017-05-25 23:11 | GCON ---
[f rep st] CONSULTATION DATE OF CONSULTATION: 05/25/2017 REFERRING PHYSICIAN: Mary Hough MD REASON FOR CONSULTATION: Abnormal CT scan, abnormal LFTs. HISTORY OF PRESENT ILLNESS: The patient is a pleasant 86-year-old male, with a past medical history significant for significant alcohol intake, possible cirrhosis noted on imaging studies, coronary a rtery disease, status post stent placement, rosacea, COPD, and reflux. He was in usual state of [facility] when he presented to the hospital on May 20 for epigastric pain with an abnormal CT scan, was initially read as extraluminal gallstones. The patient was taken to surgery by Dr. Hough. She foun d a mildly inflamed gallbladder, probably acalculous cholecystitis, and removed that, but did not no te any extraluminal gallstones. There were some calcified things impacted in transverse diverticulu m, and upon review of the CAT scan, it does appear to be the correct diagnosis. He continued to hav e some elevated liver enzymes, which are much improved today. She consult to me because of the elev ated liver enzymes and to make sure there was no biliary abnormality that needed to be addressed. When I reviewed the CAT scan, in addition to the calcified area in the transverse colon, there was s ignificant inflammation along the antrum in the beginning of the duodenal. The radiologist felt the re was probably an ulcer in that area, but could not see it on CT scan. The patient did have some e pigastric tenderness on exam; therefore, I have scheduled him for an EGD for evaluation of the above . PAST MEDICAL HISTORY: Coronary artery disease, status post stent placement, rosacea, COPD, GERD, al so has cataracts. He had been on a PPI until approximately a year ago when his PCP changed him over to an H2RA. PAST SURGICAL HISTORY: He has had diverticulosis with 20 inches of his colon removed. Cataract óscar zeeshan, inguinal hernia surgery, gland removed from his groin in 1978, and Lasik surgery. ALLERGIES: No known drug allergies. MEDICATIONS: At home included doxycycline for his rosacea, 81 mg aspirin, Spiriva, loperamide, bacilio tidine, simvastatin, Betoptic, and melatonin as needed. In hospital his medications are Tylenol p.r.n., [place] p.r.n., Betoptic 1 drop each eye q.h.s., [place] rectal suppository p.r.n., Lovenox 40 mg subcu, Pepcid 20 mg daily, lactulose p.r.n., milk of magn esia p.r.n., melatonin p.r.n., morphine p.r.n., Zofran p.r.n., Protonix was done from the h the I believe, MiraLAX p.r.n., Pravachol 20 mg q.h.s., Senokot 1 b.i.d., Spiriva hand inhaler 18 mcg daily. SOCIAL HISTORY: He used to be heavy drinker. He still drinks 1 or 2 glasses of wine with dinner an d sometimes a scotch at bedtime. Tobacco: He quit smoking years ago. He lives in [place], spends a lot of time in [place]. There is some type of family reunion occurring in a few days here and [place] he is hoping to get to. He worked in the [employer]. FAMILY HISTORY: No colon cancer. There is no cancer to his knowledge. REVIEW OF SYSTEMS: A complete review of systems was performed and negative other than noted in the HPI. Specifically, currently, no nausea, vomiting, chest pain, shortness of breath, diaphoresis, he maturia, dysuria, melena, hematochezia. PHYSICAL EXAMINATION: GENERAL: Well-developed, well-nourished, elderly male sitting in his chair, no acute distress. VITAL SIGNS: Blood pressure is 127/59, pulse 71, respirations 16, 93% on room a ir, temperature 36.7. HEENT: Eyes minimally icteric. PERRL. Mouth: No lesions. Moist mucous me mbranes. NECK: Supple. Full range of motion. No JVD. BACK: No spine tenderness. No CVA tender ness. LUNGS: Decreased breath sounds. No rhonchi or rales. CARDIAC: S1-S2, regular rate and rhy thm. I do not appreciate any murmurs, rubs, or gallops. ABDOMEN: Bowel sounds are normal in pitch and frequency, soft, with mild epigastric tenderness. No rebound. No guarding. EXTREMITIES: No cyanosis, clubbing, trace edema in his lower extremities. NEUROLOGIC: Cranial nerves intact, nonfo nick. SKIN: No stigmata of advanced liver disease. No rashes. LABORATORY DATA: From today: WBC 4.44, hemoglobin 9.4, hematocrit 30.4, platelet count 107. Sodiu m 140, potassium 4.4, chloride 110, bicarb 21, BUN 27, creatinine 1.0, calcium 8.1, total bilirubin 1.8, conjugated 0.6. AST 26, ALT 23, alkaline phosphatase 123. Yesterday, total bilirubin was 4.4, the day before was 1.6. On 05/24/2017: Pro time 16.0, INR 1.28. On 05/20, his bilirubin was 1.7. Abdominal CAT scan obtained 05/20/2017: Fluid in the right upper quadrant of the abdomen surroundin g the gallbladder, as well as edema in the duodenal bulb and gastric antrum with surrounding free fl uid in what was thought to be 2 gallstones in the right upper quadrant within the mesentery, likely presenting perforated from choledocholithiasis. Cirrhosis and small ascites in the right upper quad rant. Atherosclerotic aorta without aneurysm. No drainable abscess. The liver is nodular contour with atrophy consistent with cirrhosis. Spleen: No splenomegaly. Spleen measures 12.8 cm. Historically, he said he has had EGDs and colonoscopy for iron deficiency anemia, as well [facility] This was performed approximately 10 years [facility]. No etiology was noted. He does have a microcytic anemia currently, although I do not know what his baseline is. ASSESSMENT: 1. Abnormal imaging study with possible ulceration upon my review of the CT with the radiologist. 2. Epigastric pain consistent with peptic ulcer disease. 3. Microcytic anemia, likely iron deficient. 4. Evidence of cirrhosis with elevated bilirubin and elevated pro time. I do not think there is an y biliary obstruction at the present time. 5. Coronary artery disease. 6. Rosacea. 7. Chronic obstructive pulmonary disease. 8. Gastroesophageal reflux disease. RECOMMENDATIONS: 1. Urgent EGD with anesthesia for evaluation of abnormal CT scan. This will also evaluate to see i f he has a peptic ulcer that could account for some of his microcytic anemia. 2. Restart PPI therapy pending results of EGD. 3. Treatment of his COPD, coronary artery disease, as per primary care. 4. Try to get his old records from [place] to see when his last colonoscopy was, and what ot her previous workup he has had. If his microcytosis is truly iron deficient and resolves with treat ment of any abnormality noted on the EGD, then I would not recommend a colonoscopy in an 86-year-old , pending on his previous endoscopies. If he does have significant acid issues on EGD, and treatmen t of those does not result in resolution of his anemia, then further evaluation would be considered. 5. Further recommendations to follow the above and clinical course. Given the patient's multiple medical issues, including coronary artery disease, status post stent pl aced, his COPD, microcytic anemia, and probable cirrhosis, this will be a high-risk procedure. I domingo ve asked Anesthesia to be present for the entire procedure. Thank you for allowing me to participate in the patient's healthcare. Do not hesitate to call if yo u have any questions. Copy requested to: Marcela Johnson /[id number]/MODL
--- NOTE | 2017-05-26 06:18 | GPN ---
[f rep st] PROCEDURE NOTE DATE OF PROCEDURE: 05/25/2017 INDICATION FOR ESOPHAGOGASTRODUODENOSCOPY: Epigastric pain, abnormal CT scan. PREOPERATIVE DIAGNOSIS: Rule out peptic ulcer disease. POSTOP DIAGNOSIS: 1. Large duodenal ulcer with clean base. 2. Duodenitis. 3. Gastritis. 4. Esophagitis. INFORMED CONSENT: I did discuss with the patient regarding the procedure, alternatives, benefits, a nd risks including bleeding, perforation, infection, risk of medication. Informed consent was jeb d and witnessed. MEDICATIONS USED: IV general as per Dr. Lay. DESCRIPTION OF PROCEDURE: After adequate sedation and the patient in the left lateral decubitus pos ition, the forward-viewing upper scope was inserted in the oropharynx and advanced under direct visu alization down the esophagus. The proximal esophagus was normal. There was some grade B reflux eso phagitis in the distal esophagus. The endoscope was advanced in the stomach. There was some food i n the fundus of the stomach that precluded a full view. The antrum was erythematous with small eros ions and some edema. There were no ulcers in that. The endoscope was advanced to the duodenal bulb , there was a large clean based ulcer in duodenal bulb. The endoscope was advanced down the duodena l sweep. The mucosa appeared abnormal with altered color. The biopsies were taken from the duodena l sweep. The endoscope was withdrawn in the antrum. Biopsy taken in the antrum. Retroflexed [facility] was performed. I tried to view the cardia and did not note any gastric varices. The endosco pe was withdrawn in the esophagus and biopsies of the distal esophagus were performed. The endoscop e was advanced in the stomach and air and as much fluid was suctioned out as could be. The endoscop e was then completely withdrawn, confirming the above findings. The patient tolerated the procedure well and was transferred to the recovery room in satisfactory condition. IMPRESSION: 1. Large duodenal ulcer, clean base. 2. Duodenitis. 3. Gastritis. 4. Esophagitis. RECOMMENDATIONS: 1. Go back on PPI therapy daily at least for 8 weeks, likely he will need it long turn. 2. Follow up biopsies for H pylori. If negative, would check stool serology at some point in the n ear future. 3. Try to obtain old data from [place] to see his previous EGD and colonoscopies. 4. Check iron studies to see if his microcytosis is truly iron deficient. 5. If iron deficiency resolves with treatment of the ulceration, then I would not recommend an eval uation of his colon pending my review of his previous colonoscopies. 6. [facility]. 7. Possible discharge tonight with family. 8. Further recommendations to follow results of above. Thank you for allowing us to participate in this patient's healthcare. Do not hesitate to call me w ith questions. Copy requested to: /[id number]/MODL
== END 2017-05-25 20:21 | disposition home or self-care (01) | DRG 418 ==
LOC: F1N 23:39
PROVIDERS: ADMIT Surgery; ATTEND Surgery
PROC: 0DQL0ZZ Repair Transverse Colon, Open Approach (ICD-10-PCS; principal; 2017-05-20 19:00)
PROC: 0FT44ZZ Resection of Gallbladder, Percutaneous Endoscopic Approach (ICD-10-PCS; principal; 2017-05-20 19:00)
PROC: 30233N1 Transfusion of Nonautologous Red Blood Cells into Peripheral Vein, Percutaneous Approach (ICD-10-PCS; 2017-05-23)
PROC: 0DB98ZX Excision of Duodenum, Via Natural or Artificial Opening Endoscopic, Diagnostic (ICD-10-PCS; 2017-05-25)
PROC: 0DB68ZX Excision of Stomach, Via Natural or Artificial Opening Endoscopic, Diagnostic (ICD-10-PCS; 2017-05-25)
PROC: 0DB58ZX Excision of Esophagus, Via Natural or Artificial Opening Endoscopic, Diagnostic (ICD-10-PCS; 2017-05-25)
DX: K80.00 Calculus of gallbladder with acute cholecystitis without obstruction (principal); D62 Acute posthemorrhagic anemia; K22.10 Ulcer of esophagus without bleeding; K21.0 Gastro-esophageal reflux disease with esophagitis; D50.9 Iron deficiency anemia, unspecified; K74.60 Unspecified cirrhosis of liver; K26.9 Duodenal ulcer, unspecified as acute or chronic, without hemorrhage or perforation; K29.80 Duodenitis without bleeding; K29.70 Gastritis, unspecified, without bleeding; J44.9 Chronic obstructive pulmonary disease, unspecified; I25.10 Atherosclerotic heart disease of native coronary artery without angina pectoris; L71.9 Rosacea, unspecified; Z87.891 Personal history of nicotine dependence
CPT/HCPCS: 96365; 97116-GP; 97161-GP; 97165-GO; 97535-GO; G8978-GP-CJ; G8979-GP-CI; G8987-GO-CJ; G8988-GO-CI; J1335; J1650; J1940; J2250; J2370; J2405; J2704; J2710; J2780; J3010; P9016; Q9967

== ENCOUNTER 2017-07-17 16:56 | Emergency (ER) | payer OTHER ==
[2017-07-17] MEDS ORDERED: ONDANSETRON 4 MG/2 ML VIAL IVP ONE (19:05)
[2017-07-17] MEDS ORDERED: HYDROmorphONE/DILAUDID 1 MG/ML INJ IVP ONE (19:05)
--- NOTE | 2017-07-17 19:11 | EDPHY ---
H & P Stated Complaint: back and abd pain on r side n/v Time Seen by Provider: 07/17/17 18:57 HPI/ROS: CHIEF COMPLAINT: Right middle back and abdominal pain, vomiting. HISTORY OF PRESENT ILLNESS: The patient is an 86-year-old man with a history of cholecystectomy in May of this year with Dr. Mary Hough. He has had some slight wound dehiscence that is currently being treated. He also has a history of a partial colectomy decades ago for diverticulitis. He comes to the emergency department today complaining of right back pain just below his shoulder blade that radiates around to his umbilicus. It is not going to his lower abdomen or groin. He denies any hematuria or dysuria. No history of kidney stones. He states that he feels slightly bloated compared to normal. He has vomited 7 or 8 times today. The pain woke him up from sleep at 5:00 a.m.. He has had 1 bowel movement and has been passing gas. No fever. No chest pain, no shortness of breath. REVIEW OF SYSTEMS: Constitutional: denies: chills, fever, recent illness, recent injury EENTM: denies: blurred vision, double vision, nose congestion Respiratory: denies: cough, shortness of breath Cardiac: denies: chest pain, irregular heart rate, lightheadedness, palpitations Gastrointestinal/Abdominal: See HPI Genitourinary: denies: dysuria, frequency, hematuria, pain Musculoskeletal: denies: joint pain, muscle pain Skin: denies: lesions, rash, jaundice, bruising Neurological: denies: headache, numbness, paresthesia, tingling, dizziness, weakness Hematologic/Lymphatic: denies: blood clots, easy bleeding, easy bruising Immunologic/allergic: denies: HIV/AIDS, transplant EXAM: GENERAL: Well-appearing, well-nourished and in no acute distress. HEAD: Atraumatic, normocephalic. EYES: Pupils equal round and reactive to light, extraocular movements intact, sclera anicteric, conjunctiva are normal. ENT: TMs normal, nares patent, oropharynx clear without exudates. Moist mucous membranes. NECK: Normal range of motion, supple without lymphadenopathy or JVD. LUNGS: Breath sounds clear to auscultation bilaterally and equal. No wheezes rales or rhonchi. HEART: Regular rate and rhythm without murmurs, rubs or gallops. ABDOMEN: Mildly Distended, hepatomegaly, wound clean and dressed, no tenderness on palpation. BACK: No CVA tenderness, no spinal tenderness, step-offs or deformities EXTREMITIES: Normal range of motion, no pitting or edema. No clubbing or cyanosis. NEUROLOGICAL: Cranial nerves II through XII grossly intact. Normal speech, normal gait. 5/5 strength, normal movement in all extremities, normal sensation PSYCH: Normal mood, normal affect. SKIN: Warm, dry, normal turgor, no visible rashes or lesions. Source: Patient Exam Limitations: No limitations - Personal History Current Tetanus/Diphtheria Vaccine: Yes - Medical/Surgical History Hx Asthma: No Hx Chronic Respiratory Disease: Yes Hx Diabetes: No Hx Cardiac Disease: Yes Hx Renal Disease: No Hx Cirrhosis: No Hx Alcoholism: No Hx HIV/AIDS: No Hx Splenectomy or Spleen Trauma: No Other PMH: stent x1 12/2007, cholecystectomy, partial colectomy,. copd - Family History Significant Family History: No pertinent family hx - Social History Smoking Status: Former smoker Alcohol Use: Sober Drug Use: None Constitutional: Initial Vital Signs Temperature (C) 36.6 C 07/17/17 17:18 Heart Rate 75 07/17/17 17:18 Respiratory Rate 18 07/17/17 17:18 Blood Pressure 152/75 H 07/17/17 17:18 O2 Sat (%) 94 07/17/17 17:18 O2 Delivery Mode Room Air Allergies/Adverse Reactions: No Known Allergies Allergy (Verified 07/17/17 17:17) Home Medications: Medication Instructions Recorded Aspirin [Aspirin 81mg (*)] 81 mg PO DAILY 05/20/17 Betaxolol 0.25% [Betoptic S 0.25%] 1 drops EACHEYE HS 05/20/17 Doxycycline Hyclate [Vibramycin 100 mg PO DAILY 05/20/17 100 MG (*)] Loperamide HCl [Imodium 2 mg (*)] 4 mg PO DAILY 05/20/17 Melatonin [Melatonin 3 MG (*)] 3 - 6 mg PO HS PRN 05/20/17 Ranitidine HCl [Zantac] 150 mg PO DAILY 05/20/17 Simvastatin 10 mg PO HS 05/20/17 Tiotropium Inhaler [Spiriva 18 mcg IH DAILY 05/20/17 Handihaler] Hydrocodone/APAP 5/325 [[place] 1 - 2 tab PO Q4HRS PRN #20 tab 05/25/17 5/325 (*)] Pantoprazole Sodium [Protonix 40mg 40 mg PO BID #60 tab 05/25/17 (*)] Sennosides/Docusate Sodium 1 - 2 tab PO BID #0 tab 05/25/17 [Senokot-S] Medical Decision Making - Diagnostics EKG Interpretation: An EKG obtained and was read and documented in trace view. Please see trace view for full reading and report. Sinus rhythm, no acute ischemic changes, unchanged from previous Imaging Results: Imaging Impressions Abdomen CT 07/17/17 19:06 Impression: 1. Extensive inflammation in the 2nd portion of the duodenum, without definite evidence of perforation or abscess. 2. Small volume of ascites. 3. Cirrhosis, with borderline splenomegaly. 4. Additional findings, as above. Findings discussed with Tai Mejias M.D., on July 17, 2017 at 2032. E:amm ED Course/Re-evaluation: 8:40 p.m. we discussed the patient's CT results. His lab work is reassuring. He is slightly anemic but better than previous. The he is no longer vomiting. He denies any blood in his vomit or stool. He take Zantac currently. I will give him a GI cocktail and p.o. challenge. I will also treat him with IV fluids and observed. His repeat abdominal exam is benign. He would prefer going home if possible. 9:20 p.m. the patient has been hydrated. He continues to feel well and has a benign exam. He will follow up with GI. He declines further workup or treatment at this time. He is taking p.o.. Differential Diagnosis: Partial list of the Differential diagnosis considered include but were not limited to; gastritis, food poisoning, hemorrhage, infection and although unlikely based on the history and physical exam, I also considered obstruction, ischemia, volvulus, PE, acute coronary disease. I discussed these differential diagnoses and the plan with the patient as well as the usual and expected course. The patient understands that the diagnosis is provisional and that in medicine we are not always correct and that further workup is often warranted. Usual and customary warnings were given. All of the patient's questions were answered. The patient was instructed to return to the emergency department should the symptoms at all worsen or return, otherwise to followup with the physician as we discussed. - Data Points Laboratory Results: Laboratory Results 07/17/17 18:50 07/17/17 18:50 07/17/17 07/17/17 07/17/17 19:19 18:50 18:50 WBC 7.13 10^3/uL 10^3/uL (3.80-9.50) RBC 5.00 10^6/uL 10^6/uL (4.40-6.38) Hgb 12.2 g/dL L g/dL (13.7-17.5) Hct 39.7 % L % (40.0-51.0) MCV 79.4 fL L fL (81.5-99.8) MCH 24.4 pg L pg (27.9-34.1) MCHC 30.7 g/dL L g/dL (32.4-36.7) RDW 21.1 % H % (11.5-15.2) Plt Count 114 10^3/uL L 10^3/uL (150-400) MPV 9.8 fL fL (8.7-11.7) Neut % (Auto) 84.0 % H % (39.3-74.2) Lymph % (Auto) 8.1 % L % (15.0-45.0) [place] % (Auto) 5.8 % % (4.5-13.0) Eos % (Auto) 1.3 % % (0.6-7.6) Baso % (Auto) 0.4 % % (0.3-1.7) Nucleat RBC Rel Count 0.0 % % (0.0-0.2) Absolute Neuts (auto) 5.99 10^3/uL 10^3/uL (1.70-6.50) Absolute Lymphs (auto) 0.58 10^3/uL L 10^3/uL (1.00-3.00) Absolute Monos (auto) 0.41 10^3/uL 10^3/uL (0.30-0.80) Absolute Eos (auto) 0.09 10^3/uL 10^3/uL (0.03-0.40) Absolute Basos (auto) 0.03 10^3/uL 10^3/uL (0.02-0.10) Absolute Nucleated RBC 0.00 10^3/uL 10^3/uL (0-0.01) Immature Gran % 0.4 % % (0.0-1.1) Immature Gran # 0.03 10^3/uL 10^3/uL (0.00-0.10) Platelet Estimate ADEQUATE (ADEQ) Hypochromasia 1+ H Microcytic Cells 2+ H Sodium 138 mEq/L mEq/L (134-144) Potassium 4.7 mEq/L mEq/L (3.5-5.2) Chloride 103 mEq/L mEq/L (97-110) Carbon Dioxide 25 mEq/l mEq/l (22-31) Anion Gap 10 mEq/L mEq/L (8-16) BUN 26 mg/dL H mg/dL (7-23) Creatinine 1.1 mg/dL mg/dL (0.7-1.3) Estimated GFR > 60 Glucose 128 mg/dL H mg/dL (70-100) Calcium 9.1 mg/dL mg/dL (8.5-10.4) Total Bilirubin 1.5 mg/dL H mg/dL (0.1-1.4) Conjugated Bilirubin 0.5 mg/dL mg/dL (0.0-0.5) Unconjugated Bilirubin 1.0 mg/dL mg/dL (0.0-1.1) AST 43 IU/L IU/L (17-59) ALT 33 IU/L IU/L (21-72) Alkaline Phosphatase 141 IU/L H IU/L (38-126) Total Protein 7.5 g/dL g/dL (6.3-8.2) Albumin 3.8 g/dL g/dL (3.5-5.0) Lipase 64 IU/L IU/L (23-300) Urine Color YELLOW Urine Appearance CLEAR Urine pH 7.0 (5.0-7.5) Ur Specific [place] 1.012 (1.002-1.030) Urine Protein NEGATIVE (NEGATIVE) Urine Ketones NEGATIVE (NEGATIVE) Urine Blood NEGATIVE (NEGATIVE) Urine Nitrate NEGATIVE (NEGATIVE) Urine Bilirubin NEGATIVE (NEGATIVE) Urine Urobilinogen NEGATIVE EU EU (0.2-1.0) Ur Leukocyte Esterase NEGATIVE (NEGATIVE) Urine RBC 1-3 /hpf /hpf (0-3) Urine WBC 1-3 /hpf /hpf (0-3) Ur Epithelial Cells NONE SEEN /lpf /lpf (NONE-1+) Urine Glucose NEGATIVE (NEGATIVE) Medications Given: Discontinued Medications Al Hydroxide/Mg Hydroxide (Maalox Susp) 30 ml PO ONCE ONE Stop: 07/17/17 20:42 Last Admin: 07/17/17 20:48 Dose: 30 ml Hydromorphone HCl (Dilaudid) 0.5 mg IVP EDNOW ONE Stop: 07/17/17 19:06 Last Admin: 07/17/17 19:19 Dose: 0.5 mg Hyoscyamine Sulfate (Levsin, Hyomax-Sl) 0.25 mg PO ONCE ONE Stop: 07/17/17 20:42 Last Admin: 07/17/17 20:48 Dose: 0.25 mg Sodium Chloride (Ns) 1,000 mls @ 0 mls/hr IV EDNOW ONE; Wide Open PRN Reason: Protocol Stop: 07/17/17 20:42 Last Admin: 07/17/17 20:48 Dose: 1,000 mls Lidocaine (Lidocaine 2% Viscous) 15 ml PO ONCE ONE Stop: 07/17/17 20:42 Last Admin: 07/17/17 20:48 Dose: 15 ml Ondansetron HCl (Zofran) 4 mg IVP EDNOW ONE Stop: 07/17/17 19:06 Last Admin: 07/17/17 19:19 Dose: 4 mg Departure - Departure Disposition: Home, Routine, Self-Care Clinical Impression: Duodenitis Condition: Fair Instructions: Duodenitis (ED) Referrals: LISA MCLAUGHLIN [Other] - As per Instructions
[2017-07-17 19:17] LABS: % IMMATURE GRANULYOCYTES 0.4 % (0.0-1.1); ABSOLUTE IMMATURE GRANULOCYTES 0.03 10^3/uL (0.00-0.10); ADD DIFF? NO; ADD MORPH? YES; ADD SCAN? NO; ATYPICAL LYMPHOCYTE FLAG 0 (0-99); FRAGMENT RBC FLAG 20 (0-99); HEMATOCRIT 39.7 % (40.0-51.0); HEMOGLOBIN 12.2 g/dL (13.7-17.5); LEFT SHIFT FLG 10 (0-99); LIPEMIA HEMOLYSIS FLAG 80 (0-99); MEAN CELL HEMOGLOBIN 24.4 pg (27.9-34.1); MEAN CELL HEMOGLOBIN CONCENTR. 30.7 g/dL (32.4-36.7); MEAN CELL VOLUME 79.4 fL (81.5-99.8); MEAN PLATELET VOLUME 9.8 fL (8.7-11.7); PLATELET CLUMPS FLAG 10 (0-99); PLATELET COUNT 114 10^3/uL (150-400)
[2017-07-17 19:21] LABS: RED CELL DISTRIBUTION WIDTH 21.1 % (11.5-15.2)
[2017-07-17 19:24] VITALS: O2SAT 92
[2017-07-17 19:24] LABS: ALANINE AMINOTRANSFERASE 33 IU/L (21-72); ALBUMIN 3.8 g/dL (3.5-5.0); ALKALINE PHOSPHATASE 141 IU/L (38-126); ANION GAP 10 mEq/L (8-16); ASPARTATE AMINOTRANSFERASE 43 IU/L (17-59); BILIRUBIN,TOTAL 1.5 mg/dL (0.1-1.4); BILIRUBIN-CONJUGATED 0.5 mg/dL (0.0-0.5); CALCIUM 9.1 mg/dL (8.5-10.4); CARBON DIOXIDE 25 mEq/l (22-31); CHLORIDE 103 mEq/L (97-110); CREATININE 1.1 mg/dL (0.7-1.3); GLOMERULAR FILTRATION RATE > 60; GLUCOSE 128 mg/dL (70-100); POTASSIUM 4.7 mEq/L (3.5-5.2); SODIUM 138 mEq/L (134-144); TOTAL PROTEIN 7.5 g/dL (6.3-8.2)
[2017-07-17 19:29] LABS: COLOR YELLOW; LEUKOCYTE ESTERASE,URINE NEGATIVE (NEGATIVE); NITRITE,URINE NEGATIVE (NEGATIVE)
[2017-07-17] MEDS ORDERED: IOPAMIDOL (ISOVUE-300) 100 ML BTL ONE (19:38)
--- NOTE | 2017-07-17 19:46 | CPEKG ---
Heart Rate: 77 RR Interval: 779 P-R Interval: 212 QRSD Interval: 90 QT Interval: 388 QTC Interval: 440 P [place]: 72 QRS [place]: 18 T Wave [place]: 45 EKG Severity - OTHERWISE NORMAL ECG - EKG Impression: SINUS RHYTHM EKG Impression: LOW VOLTAGE IN FRONTAL LEADS Electronically Signed By: Tai Mejias 17-Jul-2017 19:48:34
[2017-07-17 20:26] LABS: HYPOCHROMIA 1+; MICROCYTES 2+
[2017-07-17 20:27] LABS: PLATELET ESTIMATE ADEQUATE (ADEQ)
[2017-07-17] MEDS ORDERED: MAG HYDROX/AL HYDROX/SIMETH 30 ML UDCUP PO ONE (20:41)
[2017-07-17] MEDS ORDERED: LIDOCAINE 2% VISCOUS 15 ML UDCUP PO ONE (20:41)
[2017-07-17] MEDS ORDERED: NS 1,000 ML IV ONE (20:41)
[2017-07-17] MEDS ORDERED: HYOSCYAMINE SULFATE 0.125 MG TAB PO ONE (20:41)
[2017-07-17 21:29] VITALS: BP 143/68; PULSE 80; RESP 18; TEMP 98.1
== END 2017-07-17 21:38 | disposition home or self-care (01) ==
DX: K29.80 Duodenitis without bleeding (principal); J44.9 Chronic obstructive pulmonary disease, unspecified; E86.9 Volume depletion, unspecified; Z79.82 Long term (current) use of aspirin; Z87.891 Personal history of nicotine dependence; Z90.49 Acquired absence of other specified parts of digestive tract; Z95.5 Presence of coronary angioplasty implant and graft
CPT/HCPCS: 74177; 93005; 96361; 96374; 99285; J1170; J2405; Q9967

== ENCOUNTER 2017-07-20 22:05 | Observation (INO) | payer OTHER ==
[2017-07-20] MEDS ORDERED: NS 1,000 ML IV ONE (22:46)
--- NOTE | 2017-07-20 23:02 | EDPHY ---
H & P Stated Complaint: ABD Pain - Here Sunday for Same Time Seen by Provider: 07/20/17 22:44 HPI/ROS: HPI The patient presents with abdominal pain which has been present since this morning. It has been intermittent, in his right upper abdomen, feels severe and achy. In between the episodes of pain, he sleeps. He had 2 episodes of vomiting this morning. He was seen in the emergency room on 07/17 for this same pain. He had labs and a CT scan which did reveal duodenitis in the 2nd portion of his duodenum. He is felt much better after he was discharged until now. Of note, he was diagnosed with extra luminal gallstones on May 20, he underwent open cholecystectomy with Dr. Hough on May 21. There were 2 gallstones found in his colon. He did have EGD performed which revealed a duodenal ulcer with duodenitis, gastritis, esophagitis. He was started on a PPI because of this. REVIEW OF SYSTEMS Constitutional: No fever, no chills. Eyes: No discharge. ENT: No sore throat. Cardiovascular: No chest pain, no palpitations. Respiratory: No cough, no shortness of breath. Gastrointestinal: No abdominal pain, no vomiting. Genitourinary: No hematuria. Musculoskeletal: No back pain. Skin: No rashes. Neurological: No headache. PMHx: Status post cholecystectomy in May of 2017 complicated by wound dehiscence, status post partial colectomy remotely Soc Hx: Staying at a hotel currently PHYSICAL General Appearance: Alert, no distress Eyes: Pupils equal and round no pallor or injection ENT, Mouth: Mucous membranes moist Respiratory: There are no retractions, lungs are clear to auscultation Cardiovascular: Regular rate and rhythm Gastrointestinal: Abdomen is soft with tenderness in the right upper quadrant without guarding or rebound Neurological: A&O, moves all extremities Skin: Warm and dry, no rashes Musculoskeletal: Neck is supple non tender Extremities: symmetrical, full range of motion Psychiatric: Patient is oriented X 3, there is no agitation Source: Patient Exam Limitations: No limitations - Personal History Current Tetanus Diphtheria and Acellular Pertussis (TDAP): Yes - Medical/Surgical History Hx Asthma: No Hx Chronic Respiratory Disease: Yes Hx Diabetes: No Hx Cardiac Disease: Yes Hx Renal Disease: No Hx Cirrhosis: No Hx Alcoholism: No Hx HIV/AIDS: No Hx Splenectomy or Spleen Trauma: No Other PMH: stent x1 12/2007, cholecystectomy, partial colectomy,. copd - Social History Smoking Status: Former smoker Constitutional: Initial Vital Signs Temperature (C) 36.6 C 07/20/17 22:14 Heart Rate 76 07/20/17 22:14 Respiratory Rate 18 07/20/17 22:14 Blood Pressure 166/76 H 07/20/17 22:14 O2 Sat (%) 95 07/20/17 22:14 O2 Delivery Mode Room Air Allergies/Adverse Reactions: No Known Allergies Allergy (Verified 07/17/17 17:17) Home Medications: Medication Instructions Recorded Aspirin [Aspirin 81mg (*)] 81 mg PO DAILY 05/20/17 Betaxolol 0.25% [Betoptic S 0.25%] 1 drops EACHEYE HS 05/20/17 Doxycycline Hyclate [Vibramycin 100 mg PO DAILY 05/20/17 100 MG (*)] Loperamide HCl [Imodium 2 mg (*)] 4 mg PO DAILY 05/20/17 Melatonin [Melatonin 3 MG (*)] 3 - 6 mg PO HS PRN 05/20/17 Ranitidine HCl [Zantac] 150 mg PO DAILY 05/20/17 Simvastatin 10 mg PO HS 05/20/17 Tiotropium Inhaler [Spiriva 18 mcg IH DAILY 05/20/17 Handihaler] Hydrocodone/APAP 5/325 [[place] 1 - 2 tab PO Q4HRS PRN #20 tab 05/25/17 5/325 (*)] Pantoprazole Sodium [Protonix 40mg 40 mg PO BID #60 tab 05/25/17 (*)] Sennosides/Docusate Sodium 1 - 2 tab PO BID #0 tab 05/25/17 [Senokot-S] Medical Decision Making Differential Diagnosis: This is an 86-year-old male with history of cholecystectomy, partial colectomy, recent ER visit 4 days ago for right-sided abdominal pain with CT finding of duodenitis who now presents with continued pain for the last 1 day. Differential diagnosis includes duodenitis, complication of cholecystectomy, diverticulitis, appendicitis. In the emergency department, patient was given GI cocktail and H2 antonio for his symptoms. He did not have any recurrence of his pain. Labs were checked and did reveal elevated total bilirubin, otherwise unremarkable. Given his recent abdominal operation and history of duodenal ulcer with repeat ER visit, I feel it is best to admit him to the hospital for observation. Given his benign abdominal exam, I do not feel CT scan is indicated given his last scan was 4 days ago. I did consult with general surgeon on-call for Dr. Hough, Dr. Castrejon, who evaluated the patient in the emergency room and agrees that his abdomen is nonsurgical. He recommends continued monitoring. I consulted with the hospitalist rehabilitation counsellor, Dr. Heaton who will admit the patient. I have discussed the diagnosis and treatment plan with the patient. - Data Points Laboratory Results: Laboratory Results 07/20/17 23:10 07/20/17 23:10 07/20/17 07/20/17 23:10 23:10 WBC 6.28 10^3/uL 10^3/uL (3.80-9.50) RBC 4.87 10^6/uL 10^6/uL (4.40-6.38) Hgb 11.8 g/dL L g/dL (13.7-17.5) Hct 38.2 % L % (40.0-51.0) MCV 78.4 fL L fL (81.5-99.8) MCH 24.2 pg L pg (27.9-34.1) MCHC 30.9 g/dL L g/dL (32.4-36.7) RDW 20.3 % H % (11.5-15.2) Plt Count 112 10^3/uL L 10^3/uL (150-400) MPV 9.4 fL fL (8.7-11.7) Neut % (Auto) 76.5 % H % (39.3-74.2) Lymph % (Auto) 12.7 % L % (15.0-45.0) [place] % (Auto) 6.5 % % (4.5-13.0) Eos % (Auto) 3.5 % % (0.6-7.6) Baso % (Auto) 0.5 % % (0.3-1.7) Nucleat RBC Rel Count 0.0 % % (0.0-0.2) Absolute Neuts (auto) 4.80 10^3/uL 10^3/uL (1.70-6.50) Absolute Lymphs (auto) 0.80 10^3/uL L 10^3/uL (1.00-3.00) Absolute Monos (auto) 0.41 10^3/uL 10^3/uL (0.30-0.80) Absolute Eos (auto) 0.22 10^3/uL 10^3/uL (0.03-0.40) Absolute Basos (auto) 0.03 10^3/uL 10^3/uL (0.02-0.10) Absolute Nucleated RBC 0.00 10^3/uL 10^3/uL (0-0.01) Immature Gran % 0.3 % % (0.0-1.1) Immature Gran # 0.02 10^3/uL 10^3/uL (0.00-0.10) Platelet Estimate DECREASED L (ADEQ) Hypochromasia 1+ H Oval Macrocytes 1+ H Sodium 135 mEq/L mEq/L (134-144) Potassium 4.4 mEq/L mEq/L (3.5-5.2) Chloride 101 mEq/L mEq/L (97-110) Carbon Dioxide 24 mEq/l mEq/l (22-31) Anion Gap 10 mEq/L mEq/L (8-16) BUN 23 mg/dL mg/dL (7-23) Creatinine 1.1 mg/dL mg/dL (0.7-1.3) Estimated GFR > 60 Glucose 104 mg/dL H mg/dL (70-100) Calcium 9.0 mg/dL mg/dL (8.5-10.4) Total Bilirubin 1.8 mg/dL H mg/dL (0.1-1.4) Conjugated Bilirubin 0.5 mg/dL mg/dL (0.0-0.5) Unconjugated Bilirubin 1.3 mg/dL H mg/dL (0.0-1.1) AST 31 IU/L IU/L (17-59) ALT 29 IU/L IU/L (21-72) Alkaline Phosphatase 138 IU/L H IU/L (38-126) Total Protein 7.1 g/dL g/dL (6.3-8.2) Albumin 3.5 g/dL g/dL (3.5-5.0) Lipase 54 IU/L IU/L (23-300) Medications Given: Sodium Chloride (Ns) 1,000 mls @ 100 mls/hr IV CONT GAUDENCIO Stop: 01/17/18 02:44 Last Admin: 07/21/17 02:47 Dose: 1,000 mls Discontinued Medications Al Hydroxide/Mg Hydroxide (Maalox Susp) 30 ml PO EDNOW ONE Stop: 07/20/17 23:43 Last Admin: 07/20/17 23:54 Dose: 30 ml Sodium Chloride (Ns) 1,000 mls @ 0 mls/hr IV EDNOW ONE; Wide Open PRN Reason: Protocol Stop: 07/20/17 22:47 Last Admin: 07/20/17 23:12 Dose: 1,000 mls Pantoprazole Sodium 80 mg/ (Sodium Chloride) 100 mls @ 200 mls/hr IV ONCE ONE Stop: 07/21/17 01:35 Last Admin: 07/21/17 01:43 Dose: 100 mls Ketorolac Tromethamine (Toradol) 15 mg IVP EDNOW ONE Stop: 07/20/17 23:43 Last Admin: 07/20/17 23:54 Dose: 15 mg Departure - Departure Disposition: [facility] Inpatient Acute Clinical Impression: Right upper quadrant abdominal pain, S/P cholecystectomy Condition: Fair
[2017-07-20 23:26] LABS: % IMMATURE GRANULYOCYTES 0.3 % (0.0-1.1); ABSOLUTE IMMATURE GRANULOCYTES 0.02 10^3/uL (0.00-0.10); ADD DIFF? NO; ADD MORPH? YES; ADD SCAN? NO; ATYPICAL LYMPHOCYTE FLAG 0 (0-99); FRAGMENT RBC FLAG 20 (0-99); HEMATOCRIT 38.2 % (40.0-51.0); HEMOGLOBIN 11.8 g/dL (13.7-17.5); LEFT SHIFT FLG 0 (0-99); LIPEMIA HEMOLYSIS FLAG 80 (0-99); MEAN CELL HEMOGLOBIN 24.2 pg (27.9-34.1); MEAN CELL HEMOGLOBIN CONCENTR. 30.9 g/dL (32.4-36.7); MEAN CELL VOLUME 78.4 fL (81.5-99.8); MEAN PLATELET VOLUME 9.4 fL (8.7-11.7); PLATELET CLUMPS FLAG 0 (0-99); PLATELET COUNT 112 10^3/uL (150-400); RED BLOOD CELL COUNT 4.87 10^6/uL (4.40-6.38)
[2017-07-20 23:29] LABS: RED CELL DISTRIBUTION WIDTH 20.3 % (11.5-15.2)
[2017-07-20 23:36] LABS: ALANINE AMINOTRANSFERASE 29 IU/L (21-72); ALBUMIN 3.5 g/dL (3.5-5.0); ALKALINE PHOSPHATASE 138 IU/L (38-126); ANION GAP 10 mEq/L (8-16); ASPARTATE AMINOTRANSFERASE 31 IU/L (17-59); BILIRUBIN,TOTAL 1.8 mg/dL (0.1-1.4); BILIRUBIN-CONJUGATED 0.5 mg/dL (0.0-0.5); BILIRUBIN-UNCONJUGATED 1.3 mg/dL (0.0-1.1); CARBON DIOXIDE 24 mEq/l (22-31); CHLORIDE 101 mEq/L (97-110); CREATININE 1.1 mg/dL (0.7-1.3); GLOMERULAR FILTRATION RATE > 60; GLUCOSE 104 mg/dL (70-100); POTASSIUM 4.4 mEq/L (3.5-5.2); SODIUM 135 mEq/L (134-144); TOTAL PROTEIN 7.1 g/dL (6.3-8.2)
[2017-07-20] MEDS ORDERED: KETOROLAC 15 MG/1 ML SDV IVP ONE (23:42)
[2017-07-20] MEDS ORDERED: MAG HYDROX/AL HYDROX/SIMETH 30 ML UDCUP PO ONE (23:42)
[2017-07-20 23:57] LABS: HYPOCHROMIA 1+; MACROCYTES 1+; PLATELET ESTIMATE DECREASED (ADEQ)
[2017-07-21] MEDS ORDERED: PANTOPRAZOLE SODIUM 80 MG in NS 100 ML IV ONE (01:06)
[2017-07-21] MEDS ORDERED: ONDANSETRON 4 MG/2 ML VIAL IVP PRN (02:35)
[2017-07-21] MEDS ORDERED: ACETAMINOPHEN 325 MG TAB PO PRN (02:35)
[2017-07-21] MEDS ORDERED: NS 1,000 ML IV SCH (02:45)
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
[2017-07-21 05:50] LABS: % IMMATURE GRANULYOCYTES 0.2 % (0.0-1.1); ABSOLUTE IMMATURE GRANULOCYTES 0.01 10^3/uL (0.00-0.10); ADD DIFF? NO; ADD MORPH? YES; ADD SCAN? NO; ATYPICAL LYMPHOCYTE FLAG 20 (0-99); FRAGMENT RBC FLAG 20 (0-99); HEMATOCRIT 33.1 % (40.0-51.0); HEMOGLOBIN 10.4 g/dL (13.7-17.5); LEFT SHIFT FLG 0 (0-99); LIPEMIA HEMOLYSIS FLAG 80 (0-99); MEAN CELL HEMOGLOBIN 24.6 pg (27.9-34.1); MEAN CELL HEMOGLOBIN CONCENTR. 31.4 g/dL (32.4-36.7); MEAN CELL VOLUME 78.3 fL (81.5-99.8); MEAN PLATELET VOLUME 9.4 fL (8.7-11.7); PLATELET CLUMPS FLAG 0 (0-99); PLATELET COUNT 84 10^3/uL (150-400); RED BLOOD CELL COUNT 4.23 10^6/uL (4.40-6.38)
[2017-07-21 05:52] LABS: RED CELL DISTRIBUTION WIDTH 20.2 % (11.5-15.2)
[2017-07-21 06:00] LABS: ALANINE AMINOTRANSFERASE 23 IU/L (21-72); ALBUMIN 2.6 g/dL (3.5-5.0); ALKALINE PHOSPHATASE 113 IU/L (38-126); ANION GAP 8 mEq/L (8-16); ASPARTATE AMINOTRANSFERASE 25 IU/L (17-59); BILIRUBIN,TOTAL 1.5 mg/dL (0.1-1.4); BILIRUBIN-CONJUGATED 0.3 mg/dL (0.0-0.5); BILIRUBIN-UNCONJUGATED 1.2 mg/dL (0.0-1.1); CALCIUM 8.4 mg/dL (8.5-10.4); CARBON DIOXIDE 22 mEq/l (22-31); CHLORIDE 107 mEq/L (97-110); CREATININE 1.1 mg/dL (0.7-1.3); GLOMERULAR FILTRATION RATE > 60; GLUCOSE 92 mg/dL (70-100); POTASSIUM 4.6 mEq/L (3.5-5.2); SODIUM 137 mEq/L (134-144); TOTAL PROTEIN 5.7 g/dL (6.3-8.2)
[2017-07-21 06:09] LABS: % SATURATION 7 % (20-55); TOTAL IRON BINDING CAPACITY 316 ug/dL (260-490)
[2017-07-21 06:18] LABS: HYPOCHROMIA 1+; PLATELET ESTIMATE DECREASED (ADEQ); POLYCHROMASIA 1+
[2017-07-21 06:35] LABS: FERRITIN - BCH 16.8 ng/mL (17.9-464.0)
[2017-07-21] MEDS: ENOXAPARIN 40 MG/0.4 ML SYR SC SCH (07:42)
[2017-07-21] MEDS: PANTOPRAZOLE SODIUM 40 MG TAB PO SCH ×2 (07:42→20:41)
--- NOTE | 2017-07-21 10:55 | SOAPPROG ---
SOAP Progress Note Assessment/Plan: Assessment: PT ADMITTED FOR DUODENAL ULCER PAIN/ DOING BETTER/ ABD SOFT NONTENDER/ IMPROVED Plan:CONTINUE WOUND DRESSINGS 07/21/17 10:53 Objective: Vital Signs Temp Pulse Resp BP Pulse Ox 37.2 C 69 16 123/55 H 91 L 07/21/17 07:38 07/21/17 07:38 07/21/17 07:38 07/21/17 07:38 07/21/17 07:38 Laboratory Results 07/21/17 05:20 07/21/17 05:20 07/20/17 07/21/17 07/22/17 05:59 05:59 05:59 Intake Total 1218 Balance 1218 ICD10 Worksheet Patient Problems: Problems Problem Status Onset Right upper quadrant abdominal pain Acute S/P cholecystectomy Acute Cholelithiasis Acute Perforated abdominal viscus Acute
--- NOTE | 2017-07-21 13:22 | HOSPPROG ---
Hospitalist Progress Note Assessment/Plan: 86-year-old man admitted with abdominal pain. He has a history significant for recent cholecystectomy complicated by wound infection as well as duodenal ulcer for which he has been noncompliant with his Protonix. # abdominal pain likely secondary to his ulcer. Discuss in with patient and he will be compliant with PPI. He recalls having an adverse side effect to the Protonix but did tolerate omeprazole for many years. * Continue Protonix while in the hospital, can transition to omeprazole as outpatient * Tolerating p. O. well will discontinue IV fluids * Recheck hemoglobin in a.m. if stable can be discharged # recent cholecystectomy followed by Dr. Bejarano appreciate surgery follow-up this weekend for wound care # alcoholic cirrhosis discussed abstinence # coronary artery disease status post stent, currently asymptomatic. # DVT prophylaxis patient on Lovenox Subjective: Patient new to me chart reviewed feeling well able to tolerate a full breakfast this morning without any abdominal pain. Objective: Vital Signs Temp Pulse Resp BP Pulse Ox 36.9 C 71 97 H 115/50 L 2 L 07/21/17 12:23 07/21/17 12:23 07/21/17 12:23 07/21/17 12:23 07/21/17 12:23 Laboratory Results 07/21/17 05:20 07/21/17 05:20 07/20/17 07/21/17 07/22/17 05:59 05:59 05:59 Intake Total 1218 Balance 1218 - Physical Exam Constitutional: no apparent distress, not in pain Eyes: PERRL, EOMI Ears, Nose, Mouth, Throat: moist mucous membranes Cardiovascular: regular rate and rhythym, no murmur, rub, or gallop Respiratory: no respiratory distress, no rales or rhonchi Gastrointestinal: normoactive bowel sounds, soft, non-tender abdomen, no palpable masses Genitourinary: no bladder fullness Skin: warm, normal color Neurologic: AAOx3, No facial droop Psychiatric: interacting appropriately, not anxious ICD10 Worksheet Patient Problems: Problems Problem Status Onset Perforated abdominal viscus Acute Cholelithiasis Acute Right upper quadrant abdominal pain Acute S/P cholecystectomy Acute
[2017-07-21] MEDS ORDERED: MELATONIN 3 MG TAB PO PRN (13:23)
[2017-07-21] MEDS: TIOTROPIUM INHALER 18 MCG/DOSE 5 DOSE/MDI IH SCH ×2 (13:36→14:33)
[2017-07-21 13:46] LABS: COLOR YELLOW; LEUKOCYTE ESTERASE,URINE TRACE (NEGATIVE); NITRITE,URINE NEGATIVE (NEGATIVE)
[2017-07-21 13:54] LABS: MUCUS TRACE /lpf (NONE-1+)
[2017-07-21] MEDS: DOXYCYCLINE HYCLATE 100 MG CAP/TAB PO SCH (14:33)
[2017-07-21] MEDS: FUROSEMIDE 40 MG TAB PO SCH (20:41)
[2017-07-21] MEDS ORDERED: BETAXOLOL 0.25% EACHEYE SCH (21:00)
[2017-07-22 04:45] LABS: HEMATOCRIT 32.2 % (40.0-51.0); HEMOGLOBIN 10.2 g/dL (13.7-17.5); MEAN CELL HEMOGLOBIN 24.9 pg (27.9-34.1); MEAN CELL HEMOGLOBIN CONCENTR. 31.7 g/dL (32.4-36.7); MEAN CELL VOLUME 78.7 fL (81.5-99.8); RED BLOOD CELL COUNT 4.09 10^6/uL (4.40-6.38)
[2017-07-22 05:01] LABS: ANION GAP 8 mEq/L (8-16); CALCIUM 8.5 mg/dL (8.5-10.4); CARBON DIOXIDE 21 mEq/l (22-31); CHLORIDE 107 mEq/L (97-110); CREATININE 1.2 mg/dL (0.7-1.3); GLOMERULAR FILTRATION RATE 58; GLUCOSE 90 mg/dL (70-100); POTASSIUM 4.3 mEq/L (3.5-5.2); SODIUM 136 mEq/L (134-144)
[2017-07-22] MEDS: PANTOPRAZOLE SODIUM 40 MG TAB PO SCH (08:09)
[2017-07-22] MEDS: FUROSEMIDE 40 MG TAB PO SCH (08:09)
[2017-07-22] MEDS: DOXYCYCLINE HYCLATE 100 MG CAP/TAB PO SCH (08:10)
[2017-07-22] MEDS: ENOXAPARIN 40 MG/0.4 ML SYR SC SCH (08:10)
[2017-07-22 08:13] VITALS: BP 135/59; TEMP 98
[2017-07-22] MEDS: TIOTROPIUM INHALER 18 MCG/DOSE 5 DOSE/MDI IH SCH (08:28)
[2017-07-22 08:30] VITALS: PULSE 81; RESP 14; O2SAT 92
[2017-07-22] MEDS ORDERED: LOPERAMIDE HCL 2 MG CAP PO SCH (09:00)
[2017-07-22] MEDS ORDERED: ASPIRIN 81 MG CHEWABLE TAB PO SCH (09:00)
--- NOTE | 2017-07-22 10:49 | SOAPPROG ---
SOAP Progress Note Assessment/Plan: Assessment: PT ADMITTED FOR DUODENAL ULCER PAIN/ DOING BETTER/ ABD SOFT NONTENDER/ IMPROVED Plan:CONTINUE WOUND DRESSINGS 07/21/17 10:53 07/22/17 10:47 CONTINUES TO IMPROVE / AFEBRILE / EATING/ ABDOMEN SOFT NONTENDER / CHEST CLEAR / COR REGULAR RHYTHM / ABDOMINAL WOUND OKAY HOME PER INTERNAL MEDICINE Objective: Vital Signs Temp Pulse Resp BP Pulse Ox 36.6 C 81 14 135/59 H 92 07/22/17 08:13 07/22/17 08:28 07/22/17 08:28 07/22/17 08:13 07/22/17 08:28 Laboratory Results 07/22/17 04:26 07/22/17 04:26 07/21/17 07/22/17 07/23/17 05:59 05:59 05:59 Intake Total 1218 Output Total 300 Balance 1218 -300 ICD10 Worksheet Patient Problems: Problems Problem Status Onset Right upper quadrant abdominal pain Acute S/P cholecystectomy Acute Cholelithiasis Acute Perforated abdominal viscus Acute
--- NOTE | 2017-07-22 13:02 | GDS ---
[f rep st] DISCHARGE SUMMARY DIAGNOSES: 1. Abdominal pain, likely secondary to duodenitis from previous duodenal ulcer, untreated. No evide nce of bleeding. Hemoglobin stable. 2. Recent cholecystectomy, complicated by mild wound infection, improving. 3. Alcoholism, with alcoholic cirrhosis, discussed abstinence. 4. Coronary artery disease, status post stent, asymptomatic. HOSPITAL COURSE: The patient is an 86-year-old, who was recently admitted a month ago here for abdom inal pain. EGD revealed a duodenal ulcer. He was prescribed Protonix. He also underwent a recent c holecystectomy, which was complicated by a very mild wound infection, and has been followed by [facility] since then. Unfortunately, he discontinued his Protonix after leaving the hospital, and his abdomi nal pain worsened over the last several days. This is likely associated with untreated duodenal ulce r, as well as ongoing use of nonsteroidal anti-inflammatories. In the hospital, he was started back on a PPI. His symptoms resolved, and he was eating a regular diet at the time of discharge. He was advised to stop drinking and to stop using nonsteroidal anti-inflammatories. General surgery did see him in the hospital for wound care, which was progressing nicely. CONDITION ON DISCHARGE: Good. DISCHARGE MEDICATIONS: Please see discharge medication forms. FOLLOWUP: He should follow up with his primary care physician in [place]. New medications in clude Protonix 40 mg daily. He has an adequate source of these at home, with refills. He can follow up with his doctor in [place] should he have any other problems. /[id number]/MODL
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
== END 2017-07-22 15:52 | disposition home or self-care (01) ==
LOC: F3N 07-21 02:15
PROVIDERS: ADMIT Internal Medicine; ATTEND Internal Medicine
DX: R10.11 Right upper quadrant pain (principal); K29.80 Duodenitis without bleeding; K26.9 Duodenal ulcer, unspecified as acute or chronic, without hemorrhage or perforation; F10.20 Alcohol dependence, uncomplicated; K70.30 Alcoholic cirrhosis of liver without ascites; K29.70 Gastritis, unspecified, without bleeding; K21.0 Gastro-esophageal reflux disease with esophagitis; Z91.14 Patient's other noncompliance with medication regimen; I25.10 Atherosclerotic heart disease of native coronary artery without angina pectoris; D64.9 Anemia, unspecified; J44.9 Chronic obstructive pulmonary disease, unspecified; L71.9 Rosacea, unspecified; Z79.1 Long term (current) use of non-steroidal anti-inflammatories (NSAID); Z87.891 Personal history of nicotine dependence; Z95.5 Presence of coronary angioplasty implant and graft; Z90.49 Acquired absence of other specified parts of digestive tract
CPT/HCPCS: G0378; J1650; J1885; 96365

== ENCOUNTER → 2017-08-21 | Outpatient (CLI) | payer OTHER | LOC: BMCIMAGING 16:42 | PROVIDERS: ATTEND Emergency Medicine | DX: M79.662 Pain in left lower leg (principal); M79.89 Other specified soft tissue disorders ==

== ENCOUNTER 2018-05-14 16:42 | Emergency (ER) | payer OTHER ==
--- NOTE | 2018-05-14 18:09 | EDPHY ---
H & P Stated Complaint: last night tripped on rug/fell low back pain/denies loc or neck pain Time Seen by Provider: 05/14/18 16:56 HPI/ROS: CHIEF COMPLAINT: Back pain HISTORY OF PRESENT ILLNESS: This is an 87-year-old male who tripped over a rug last night around midnight. He fell and has had back pain since falling. He reports pain above the level of his waist bilaterally. He was seen by his physical therapist today--for treatment of knee pain--and was referred to the emergency department for further evaluation and x-rays. He has not had any new numbness or weakness. No bowel or bladder changes. He reports a history of a bulging disc at L4-5 that was diagnosed by MRI about a year ago. He has bilateral hip pain with walking--this hs been present for quite some time and is unchanged. He has not taken anything for pain today. REVIEW OF SYSTEMS: A ten point review of systems was performed and is negative with the exception of the items mentioned in the HPI. Past medical history: 1. . Coronary artery disease status post stenting 2. Osteoarthritis 3. COPD 4. GERD 5. Diverticular disease. Past surgical history: 1. PCI 2. Cholecystectomy 3. Partial colectomy due to diverticular disease Social history: He is retired from the [employer] and also from a career in public health analyst. He is . He currently lives alone, part of the time in [place], [place] and part of the time in [place]. General Appearance: Alert. Vital signs reviewed. Eyes: Pupils equal and round, no conjunctival injection, no discharge. Anicteric. ENT, Mouth: Mucous membranes are moist, no oropharyngeal erythema or edema. Neck: No lymphadenopathy, supple. Respiratory: Lungs are clear to auscultation; no wheezes, rales, or rhonchi. Cardiovascular: Regular rate and rhythm; no murmur, rub, or gallop. Gastrointestinal: Abdomen is soft and nontender, no masses or organomegaly, bowel sounds normal. Skin: Warm and dry, no rashes on exposed skin, normal color. Back: Tender to palpation in the midline over the midthoracic, lower thoracic spine. No tenderness palpation over the lumbar spine but he does complain of paraspinous muscle pain in the upper lumbar region. No palpable muscle spasm. Extremities: No lower extremity edema, no calf tenderness or swelling. Neurological: Alert and oriented. Moving all four extremities easily and equally. Strength is 5 over 5 bilaterally with testing of all major motor groups. Sensation is intact to light touch over all 4 extremities. Deep tendon reflexes are 2+ in the biceps and knees bilaterally. Psychiatric: Normal affect. - Personal History Current Tetanus Diphtheria and Acellular Pertussis (TDAP): Yes - Medical/Surgical History Hx Asthma: No Hx Chronic Respiratory Disease: Yes Hx Diabetes: No Hx Cardiac Disease: Yes Hx Renal Disease: No Hx Cirrhosis: No Hx Alcoholism: No Hx HIV/AIDS: No Hx Splenectomy or Spleen Trauma: No Other PMH: stent x1 12/2007, cholecystectomy, partial colectomy,. copd - Social History Smoking Status: Former smoker Constitutional: Initial Vital Signs Temperature (C) 36.7 C 05/14/18 16:51 Heart Rate 88 05/14/18 16:51 Respiratory Rate 18 05/14/18 16:51 Blood Pressure 144/70 H 05/14/18 16:51 O2 Sat (%) 92 05/14/18 16:51 O2 Delivery Mode Room Air Allergies/Adverse Reactions: No Known Allergies Allergy (Verified 05/14/18 16:51) Home Medications: Medication Instructions Recorded Aspirin [Aspirin 81mg (*)] 81 mg PO DAILY 05/20/17 Betaxolol 0.25% [Betoptic S 0.25%] 1 drops EACHEYE HS 05/20/17 Doxycycline Hyclate [Vibramycin 100 mg PO DAILY 05/20/17 100 MG (*)] Melatonin [Melatonin 3 MG (*)] 3 - 6 mg PO HS PRN 05/20/17 Tiotropium Inhaler [Spiriva 18 mcg IH DAILY 05/20/17 Handihaler] Furosemide [Lasix 40 MG (*)] 20 mg PO BID 07/21/17 Loperamide HCl [Imodium 2 mg (*)] 2 mg PO DAILY 07/21/17 Pantoprazole Sodium [Protonix 40mg 40 mg PO DAILY #1 tab 07/22/17 (*)] Medical Decision Making ED Course/Re-evaluation: Plain films of the lumbar and thoracic spine show compression of the end plate of L1 that is new since the scan in July of 2017. I re-examined the patient and he is having pain at that area. CT scan of the lumbar spine indicates that the L1 compression is acute/ subacute. There is no retropulsion. I spoke with Dr. Vallejo, neurosurgery, who recommends a Fatoumata brace. A Hedley brace was fitted and the patient was able to ambulate. He was given instructions on its use and he will follow up with Neurosurgery and his primary care physician. Danger signs were reviewed with him. I think that this new compression fracture is the cause of his current discomfort. 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 I do not suspect an infectious process, nor do I suspect ureterolithiasis. Differential Diagnosis: Back pain including but not limited to muscular pain, herniated disc, spine fracture, intra-abdominal causes and urinary tract infection. Departure - Departure Disposition: Home, Routine, Self-Care Clinical Impression: Compression fracture of L1 lumbar vertebra Qualifiers: Encounter type: initial encounter Fracture type: closed Qualified Code(s): S32.010A - Wedge compression fracture of first lumbar vertebra, initial encounter for closed fracture Condition: Good Instructions: Vertebral Compression Fracture (ED) Additional Instructions: Wear the brace as instructed. Someone from [facility] will call you tomorrow to see how you are doing. They will arrange a follow-up visit in their office. I spoke with Dr. Genevieve tamayo and I am providing his office number. If you have any new or concerning symptoms--severe persistent pain, difficulty urinating or moving her bowels, new leg numbness or new leg weakness--you should be re-evaluated immediately. Referrals: Andrea Vallejo MD [Medical Doctor] - As per Instructions Summer Bills MD [Medical Doctor] - As per Instructions
[2018-05-14 23:27] VITALS: BP 143/65
== END 2018-05-14 23:26 | disposition home or self-care (01) ==
DX: S32.010A Wedge compression fracture of first lumbar vertebra, initial encounter for closed fracture (principal); J44.9 Chronic obstructive pulmonary disease, unspecified; I25.10 Atherosclerotic heart disease of native coronary artery without angina pectoris; Z95.5 Presence of coronary angioplasty implant and graft; Z87.891 Personal history of nicotine dependence; Z79.82 Long term (current) use of aspirin; W01.0XXA Fall on same level from slipping, tripping and stumbling without subsequent striking against object, initial encounter

== ENCOUNTER 2018-05-23 06:34 | Emergency (ER) | payer OTHER ==
--- NOTE | 2018-05-23 07:40 | EDPHY ---
H & P Time Seen by Provider: 05/23/18 06:58 HPI/ROS: Chief complaint. Back pain HPI. Patient is an 87-year-old male who was seen May 14 after a sit down fall. He had low back pain. X-rays and CT showed an anterior superior mild cortical end plate compression fracture of L1. Had an old fracture of L3. He has bulging disc at L4-5. The patient was fitted with a Fatoumata brace and recommended use Tylenol. Patient is here because he continues to have back pain that is not adequately treated with Tylenol. He has no leg weakness or bowel or bladder symptoms. No radiation to his legs. There has been no further fall or injury. The patient also feels that the brace does not fit correctly. He has seen [facility] brace emergency spill response technician wants since his discharge on May 14 because of ill fitting brace. ROS Constitutional. no fever/chills, no weakness Eyes. no problems with vision ENT. no sore throat, no nasal drainage Cardiovascular. no chest pain Respiratory. no shortness of breath, no cough Abdominal. no abdominal pain, no nausea/vomiting, no diarrhea . no problems urinating MS. Low back pain Skin. no rash Lymph. no swollen glands Neuro. no headache, no dizziness, no difficulty walking or with speech Past Medical/Surgical History: Past medical history significant for cardiac stent, cholecystectomy, partial colectomy, COPD, recent L1 fracture Social History: , nonsmoker, no alcohol Smoking Status: Former smoker Physical Exam: General Appearance: Alert well-developed male mild distress vital signs are stable Eyes: Pupils equal and round no pallor or injection. ENT, Mouth: Mucous membranes are moist. Respiratory: There are no retractions, lungs are clear to auscultation. Cardiovascular: Regular rate and rhythm. Gastrointestinal: Abdomen is soft and nontender, no masses, bowel sounds normal. Neurological: Awake and alert, sensory and motor exams grossly normal. No leg weakness or change in sensation. Skin: Warm and dry, no rashes. Musculoskeletal: No cervical or thoracic tenderness. Mild diffuse tenderness around upper lumbar vertebra Extremities mild swelling to both extremities which he says is chronic Psychiatric: Patient is oriented X 3, there is no agitation. Constitutional: Initial Vital Signs Temperature (C) 36.6 C 05/23/18 06:36 Heart Rate 86 05/23/18 06:36 Respiratory Rate 18 05/23/18 06:36 Blood Pressure 123/61 H 05/23/18 06:36 O2 Sat (%) 90 L 05/23/18 06:36 O2 Delivery Mode Room Air Allergies/Adverse Reactions: bee venom protein (honey bee) Allergy (Verified 05/23/18 06:41) Home Medications: Medication Instructions Recorded Aspirin [Aspirin 81mg (*)] 81 mg PO DAILY 05/20/17 Betaxolol 0.25% [Betoptic S 0.25%] 1 drops EACHEYE HS 05/20/17 Doxycycline Hyclate [Vibramycin 100 mg PO DAILY 05/20/17 100 MG (*)] Melatonin [Melatonin 3 MG (*)] 3 - 6 mg PO HS PRN 05/20/17 Tiotropium Inhaler [Spiriva 18 mcg IH DAILY 05/20/17 Handihaler] Furosemide [Lasix 40 MG (*)] 20 mg PO BID 07/21/17 Loperamide HCl [Imodium 2 mg (*)] 2 mg PO DAILY 07/21/17 Pantoprazole Sodium [Protonix 40mg 40 mg PO DAILY #1 tab 07/22/17 (*)] Hydrocodone/APAP 5/325 [[place] 1 each PO Q4-6PRN PRN #14 tab 05/23/18 5/325 (*)] Medical Decision Making Procedures: Hydrocodone orally Call to User Experience Team Lead brace for possible adjustment ED Course/Re-evaluation: Hang her braces been here to adjust the patient's brace to the patient's satisfaction. Pain is controlled with the hydrocodone Patient remains stable and improved Patient and I discussed treatment plan including criteria for return importance follow-up further evaluation. He expresses understanding and agreement Differential Diagnosis: I think this is muscular type pain as well as pain from his L1 fracture this just poorly controlled with Tylenol. There is no evidence of cauda equina syndrome. There has been no further injury or fall. Patient's brace was not quite fitting him well. - Data Points Medications Given: Discontinued Medications Hydrocodone Bitart/Acetaminophen ([place] 5/325) 1 tab PO EDNOW ONE Stop: 05/23/18 07:43 Last Admin: 05/23/18 07:50 Dose: 1 tab Ondansetron HCl (Zofran Odt) 4 mg PO EDNOW ONE Stop: 05/23/18 07:43 Last Admin: 05/23/18 07:56 Dose: Not Given Departure - Departure Disposition: Home, Routine, Self-Care Clinical Impression: Compression fracture of L1 lumbar vertebra Qualifiers: Encounter type: subsequent encounter Fracture type: closed Fracture healing: with routine healing Qualified Code(s): S32.010D - Wedge compression fracture of first lumbar vertebra, subsequent encounter for fracture with routine healing Condition: Good Instructions: Thoracolumbar Fracture (ED) Additional Instructions: Continue to wear your brace when ambulatory Tylenol or hydrocodone as needed for pain. Return for worsening symptoms including leg weakness or bowel or bladder symptoms. Keep your follow-up appointments as scheduled Referrals: NONE *PRIMARY CARE P,. [Primary Care Provider] - As per Instructions Andrea Vallejo MD [Medical Doctor] - As per Instructions Prescriptions: Hydrocodone/APAP 5/325 [[place] 5/325 (*)] 1 each PO Q4-6PRN PRN #14 tab PRN Reason: Pain, Moderate
[2018-05-23] MEDS ORDERED: HYDROCODONE/APAP 5/325 TAB PO ONE (07:42)
[2018-05-23] MEDS ORDERED: ONDANSETRON DISINTEGRATING 4 MG TAB PO ONE (07:42)
[2018-05-23 09:07] VITALS: BP 121/71
== END 2018-05-23 09:07 | disposition home or self-care (01) ==
DX: S32.010D Wedge compression fracture of first lumbar vertebra, subsequent encounter for fracture with routine healing (principal); J44.9 Chronic obstructive pulmonary disease, unspecified; Z79.82 Long term (current) use of aspirin; Z87.891 Personal history of nicotine dependence; W18.39XD Other fall on same level, subsequent encounter

== ENCOUNTER → 2018-07-12 | Outpatient (CLI) | payer OTHER | LOC: FIMAGING 15:18 | PROVIDERS: ATTEND Physician Assistant Surgical | DX: S32.010D Wedge compression fracture of first lumbar vertebra, subsequent encounter for fracture with routine healing (principal) ==

== ENCOUNTER → 2018-10-28 | Outpatient (CLI) | payer OTHER | LOC: FIMAGING 15:45 | PROVIDERS: ATTEND Physician Assistant Surgical | DX: S32.010A Wedge compression fracture of first lumbar vertebra, initial encounter for closed fracture (principal) ==

== ENCOUNTER → 2018-12-03 | Outpatient (CLI) | payer OTHER | LOC: BHFA 12:45 | PROVIDERS: ATTEND Physician Assistant | DX: I25.10 Atherosclerotic heart disease of native coronary artery without angina pectoris (principal) ==

== ENCOUNTER 2018-12-06 08:31 | Observation (INO) | payer OTHER ==
[2018-12-06] MEDS ORDERED: ceFAZolin 2 GM/DEXTROSE 100 ML IV ONE (08:44)
[2018-12-06] MEDS ORDERED: LR 1,000 ML IV ONE (08:45)
[2018-12-06] MEDS ORDERED: NS 500 ML IV ONE (09:06)
[2018-12-06 09:33] LABS: PLATELET COUNT 106 10^3/uL (150-400)
--- NOTE | 2018-12-06 09:37 | PDHPUP ---
History & Physical Update H&P update statement: This history and physical update is based on an assessment of the patient which was completed after admission or registration (within 24 hours), but prior to the surgery/procedure. H&P update: H&P reviewed & patient examined, no change in patient's condition since H&P completed (had dental surgery)
[2018-12-06] MEDS ORDERED: BUPIVACAINE 0.5% 30 ML SDV ONE (09:51)
[2018-12-06] MEDS ORDERED: MIDAZOLAM 2 MG/2 ML VIAL IVP ONE (10:04)
--- NOTE | 2018-12-06 10:04 | PDANEPAE ---
ANE History of Present Illness ventral hernia, here for open closure ANE Past Medical History - Cardiovascular History Hx Hypertension: No Hx Arrhythmias: No Hx Chest Pain: No Hx Coronary Artery / Peripheral Vascular Disease: Yes Hx CHF / Valvular Disease: Yes Hx Palpitations: No Cardiovascular History Comment: cardiac stent x1. sees home care provider yearly in [place] due for visit in sep 2018 - Pulmonary History Hx COPD: Yes Hx Asthma/Reactive Airway Disease: No Hx Recent Upper Respiratory Infection: No Hx Oxygen in Use at Home: No Hx Sleep Apnea: No Sleep Apnea Screening Result - Last Documented: Positive Pulmonary History Comment: erin triggers. smoker x35 yrs. on spiriva daily - Neurologic History Hx Cerebrovascular Accident: No Hx Seizures: No Hx Dementia: No Neurologic History Comment: compression fx L1 s/p fall 05/2018 - Endocrine History Hx Diabetes: No - Renal History Hx Renal Disorders: No - Liver History Hx Hepatic Disorders: No Hepatic History Comment: asymptomic until this admission - Neurological & Psychiatric Hx Hx Neurological and Psychiatric Disorders: No Neurological / Psychiatric History Comment: herniated disc with B hip pain - Cancer History Hx Cancer: Yes Cancer History Comment: Basal cell ca - Congenital Disorder History Hx Congenital Disorders: No - GI History Hx Gastrointestinal Disorders: Yes Gastrointestinal History Comment: hx of colon resection d/t diverticulitis. duodenal ulcer possibly from [facility] nsaids. chronic diarrhea since resection - Other Health History Other Health History: wears reading glasses. bruises easily. glaucoma. mild anemia on iron supplement. - Chronic Pain History Chronic Pain: Yes (bilateral knee pain) - Surgical History Prior Surgeries: 05/20/17 lap mary, exp lap with lysis of adhesions with Gianluca. infected gland removed from groin 11/1978. Left inguinal hernia repair. colon resection 2003. cataract surgery 2007. cardiac stent 2007. mohs procedure 10-15 yrs ago. large resection of large intestine. cataract sx ANE Review of Systems Review of Systems: - Exercise capacity METS (RN): 4 METS ANE Patient History - Allergies Allergies/Adverse Reactions: yellow jacket venom Allergy (Uncoded 12/05/18 16:55) Anaphylaxis - Home Medications Home Medications: Acetaminophen [Tylenol ES 500 mg (*)] 500 mg PO DAILY 12/02/18 [Last Taken 12/05] Aspirin EC [Aspirin EC 81 mg (*)] 81 mg PO DAILY 12/02/18 [Last Taken 12/05/18] Cyanocobalamin [Vitamin B12 (*)] 1,000 mcg PO DAILY 12/02/18 [Last Taken ] Doxycycline Hyclate [Vibramycin 100 MG (*)] 100 mg PO DAILY 12/02/18 [Last Taken 12/05/18] Furosemide [Lasix 40 MG (*)] 40 mg PO DAILY 12/02/18 [Last Taken 12/05/18] Herbals/Supplements -Info Only 1 ea PO DAILY 12/02/18 [Last Taken 12/05/18] Loperamide HCl [Imodium 2 mg (*)] 4 mg PO DAILY 12/02/18 [Last Taken 12/05/18] Melatonin 10 mg PO HS PRN 12/02/18 [Last Taken 12/05/18] Pantoprazole Sodium [Protonix 40mg (*)] 40 mg PO DAILY 12/02/18 [Last Taken ] Tiotropium Inhaler [Spiriva Handihaler] 18 mcg IH DAILY 12/02/18 [Last Taken ] - NPO status NPO Since - Liquids (Date): 12/05/18 NPO Since - Liquids (Time): 11:35 NPO Since - Solids (Date): 12/05/18 NPO Since - Solids (Time): 21:00 - Smoking Hx Smoking Status: Former smoker - Family Anes Hx Family Hx Anesthesia Complications: none ANE Labs/Vital Signs - Labs Result Diagrams: 12/06/18 09:17 12/06/18 09:17 - Vital Signs Blood Pressure: 136/81 Heart Rate: 78 Respiratory Rate: 18 O2 Sat (%): 93 Height: 182.88 cm Weight: 68.039 kg ANE Physical Exam - Airway Neck exam: FROM Mallampati Score: Class 2 Mouth exam: normal dental/mouth exam - Pulmonary Pulmonary: no respiratory distress, no rales or rhonchi, other (has cough but denies any URI symptoms) - Cardiovascular Cardiovascular: regular rate and rhythym, no murmur, rub, or gallop - ASA Status ASA Status: III ANE Anesthesia Plan Anesthesia Plan: general endotracheal anesthesia Total IV Anesthesia: No
[2018-12-06] MEDS ORDERED: ROCURONIUM 100 MG/10 ML VIAL ONE (10:34)
[2018-12-06] MEDS ORDERED: ONDANSETRON 4 MG/2 ML VIAL ONE (10:34)
[2018-12-06] MEDS ORDERED: PROPOFOL 200 MG/20 ML VIAL ONE (10:34)
[2018-12-06] MEDS ORDERED: SUGAMMADEX SODIUM 200 MG/2 ML VIAL IVP ONE (10:34)
[2018-12-06] MEDS ORDERED: DEXAMETHASONE 4 MG/ML VIAL ONE (10:34)
[2018-12-06] MEDS ORDERED: LIDOCAINE 2% 100 MG/5 ML SYR ONE (10:34)
[2018-12-06] MEDS ORDERED: fentaNYL 250 MCG/5 ML INJ ONE (10:34)
[2018-12-06] MEDS ORDERED: PHENYLEPHRINE HCL 100 MCG/ML SYR ONE (10:34)
--- NOTE | 2018-12-06 12:37 | POSTOPPROG ---
Post Op Note Date of Operation: 12/06/18 Surgeon: Mary Hough Interventional Neuroradiologist: amy Anesthesiologist: celestine Anesthesia: GET(General Endotracheal) Pre-op Diagnosis: ventral hernia Post-op Diagnosis: same Indication: 87yo M with symptomatic incisional/ventral hernia Procedure: open ventral hernia repair with mesh, adhesiolysis Findings: onlay mesh Inf/Abcess present in the surg proc area at time of surgery?: No EBL: Minimal Specimen(s): none
[2018-12-06] MEDS ORDERED: diphenhydrAMINE 25 MG CAP PO PRN (12:38)
[2018-12-06] MEDS ORDERED: ONDANSETRON 4 MG/2 ML VIAL IVP PRN (12:38)
[2018-12-06] MEDS ORDERED: ONDANSETRON DISINTEGRATING 4 MG TAB PO PRN (12:38)
[2018-12-06] MEDS ORDERED: ACETAMINOPHEN 325 MG TAB PO PRN (12:38)
[2018-12-06] MEDS ORDERED: HYDROmorphONE/DILAUDID 1 MG/ML INJ IVP PRN (12:38)
[2018-12-06] MEDS ORDERED: MELATONIN 3 MG TAB PO PRN (12:39)
[2018-12-06] MEDS ORDERED: traMADol 50 MG TAB PO PRN (12:43)
[2018-12-06] MEDS ORDERED: fentaNYL 100 MCG/2 ML INJ IVP PRN (12:50)
[2018-12-06] MEDS ORDERED: NALOXONE HCL 0.4 MG/ML INJ IVP PRN (12:50)
[2018-12-06] MEDS ORDERED: ACETAMINOPHEN 500 MG TAB PO PRN (12:50)
[2018-12-06] MEDS ORDERED: oxyCODONE IR 5 MG TAB PO PRN (12:50)
[2018-12-06] MEDS ORDERED: DIAZEPAM 5 MG/ML 1 ML SYR IVP PRN (12:50)
[2018-12-06] MEDS ORDERED: LR 500 ML IV PRN (12:50)
[2018-12-06] MEDS ORDERED: HYDROmorphONE/DILAUDID 2 MG/ML INJ IVP PRN (12:50)
[2018-12-06] MEDS ORDERED: MEPERIDINE 25 MG/0.5 ML AMP IVP PRN (12:50)
--- NOTE | 2018-12-06 13:24 | POSTANESTH ---
Post Anesthetic Evaluation Cardiovascular Status: Normal, Stable Respiratory Status: Normal, Stable Level of Consciousness/Mental Status: Can Participate in Eval, Mildly Sleepy, Arousable Pain Control: Adequate, Prn Tx Ordered Nausea/Vomiting Control: Adequate, Prn Tx Ordered Complications Possibly Related to Anesthesia: None Noted
[2018-12-06] MEDS ORDERED: ALBUTEROL 3 ML DEYVIAL ONE (13:31)
[2018-12-06] MEDS ORDERED: NS 1,000 ML IV SCH (17:00)
[2018-12-06] MEDS ORDERED: D5W 1/2 NS W/ 20 KCl/L 1,000 ML IV SCH (19:30)
[2018-12-07] MEDS: FUROSEMIDE 40 MG TAB PO SCH ×2 (08:40→08:41)
[2018-12-07] MEDS ORDERED: PANTOPRAZOLE SODIUM 40 MG TAB PO SCH (09:00)
[2018-12-07] MEDS ORDERED: DOXYCYCLINE HYCLATE 100 MG CAP/TAB PO SCH (09:00)
[2018-12-07] MEDS ORDERED: TIOTROPIUM INHALER 18 MCG/DOSE 5 DOSE/MDI IH SCH (09:00)
[2018-12-07] MEDS ORDERED: CYANO/VITAMIN B12 1000 MCG TAB PO SCH (09:00)
[2018-12-07] MEDS ORDERED: ASPIRIN EC 81 MG TAB PO SCH (09:00)
[2018-12-07 11:41] VITALS: BP 127/69
--- NOTE | 2018-12-07 15:29 | ASMTLACE ---
LACE Length of stay for Answers: 1 day current admission Acuity / Level of Answers: No Care: Did the patient have an inpatient admission? Comorbidities - select Answers: Any tumor (including all that apply lymphoma or leukemia) Coronary Artery Disease Moderate or severe liver or renal disease Other Notes: Cirrhosis, duodenal ulcer, colon resection, anemia # of Emergency department Answers: 0 visits in the last 6 months Score: 10 Date Signed: 12/07/2018 03:28 PM Electronically Signed By:Francine Kwong RN
--- NOTE | 2018-12-07 15:35 | ASDISCHSUM ---
Discharge Information Plan Status:Home with No Needs Medically Cleared to Leave:12/06/2018 Discharge Date:12/07/2018 01:24 PM CM D/C Disposition:Home, Routine, Self-Care ADT D/C Disposition:Home, Routine, Self-Care Projected Discharge Date:12/07/2018 01:24 PM Transportation at D/C:Friend Discharge Delay Reason: Follow-Up Date:12/07/2018 01:24 PM Discharge Slot:2 - 12:01 pm - 18:00 pm Final Diagnosis:Open ventral hernia repair with mesh Placement Information Patient Contact Information Contact Name:SHALA Relationship:Amena Address: City: [facility] Phone: [facility] Code:[place] Email: Financial Information Financial Class:Medicare Primary Plan Desc:MEDICARE OUTPATIENT Primary Plan Number:[id number] Secondary Plan Desc:[facility] Secondary Plan Number:[id number] Assessment Information LACE LACE Length of stay for Answers: 1 day current admission Acuity / Level of Answers: No Care: Did the patient have an inpatient admission? Comorbidities - select Answers: Any tumor (including all that apply lymphoma or leukemia) Coronary Artery Disease Moderate or severe liver or renal disease Other Notes: Cirrhosis, duodenal ulcer, colon resection, anemia # of Emergency department Answers: 0 visits in the last 6 months Score: 10 Date Signed: 12/07/2018 03:28 PM Electronically Signed By:Francine Kwong RN [facility] CM Progress Note CM Note CM Note Notes: Reviewed chart. Pt admitted for planned ventral hernia repair. History is extensive and includes a duodenal ulcer, abdominal mass, colon resection, anemia, coronary artery disease, compression fractures, chronic kidney disease (stage III), gallstones, glaucoma, cirrhosis and multiple surgeries. Pt is a and lives in [place]. Pt to discharge home independently today with no identified needs. No therapies ordered. No IM/RADFORD forms signed, pt left prior to signing. Pt to follow up as directed. CM available for any further issues or concerns. Discharge Plan: Home independently Date Signed: 12/07/2018 03:33 PM Electronically Signed By:Francine Kwong RN Intervention Information Intervention Type:IM-Pt. Not Available Date of Service:12/07/2018 03:35 PM Patient Type:Observation Staff Member:FRED Kwong Taylor Hours: Discipline: Severity: Comment:Pt left prior to signing. Intervention Type:RADFORD-Not Delivered Date of Service:12/07/2018 03:35 PM Patient Type:Observation Staff Member:FRED Kwong Taylor Hours: Discipline: Severity: Comment:Pt left prior to signing.
[2018-12-08] MEDS ORDERED: ENOXAPARIN 40 MG/0.4 ML SYR SC SCH (09:00)
== END 2018-12-07 13:24 | disposition home or self-care (01) ==
LOC: F3N 08:31 → F3E 14:13
PROVIDERS: ADMIT Surgery; ATTEND Surgery
PROC: 0WUF0JZ Supplement Abdominal Wall with Synthetic Substitute, Open Approach (ICD-10-PCS; principal; 2018-12-06 10:00)
DX: K43.9 Ventral hernia without obstruction or gangrene (principal); I25.10 Atherosclerotic heart disease of native coronary artery without angina pectoris; N18.3 Chronic kidney disease, stage 3 (moderate); J44.9 Chronic obstructive pulmonary disease, unspecified; K21.9 Gastro-esophageal reflux disease without esophagitis; D50.9 Iron deficiency anemia, unspecified; G47.33 Obstructive sleep apnea (adult) (pediatric); K74.60 Unspecified cirrhosis of liver; Z87.19 Personal history of other diseases of the digestive system; Z87.891 Personal history of nicotine dependence; Z95.5 Presence of coronary angioplasty implant and graft; Z90.49 Acquired absence of other specified parts of digestive tract
CPT/HCPCS: 49560; 49568; C1781; J0690; J1100; J2001; J2250; J2370; J2405; J2704; J3010; J7613

== ENCOUNTER → 2019-04-11 | Outpatient (CLI) | payer OTHER | LOC: FIMAGING 14:30 ==